=== PATIENT | female | born 1965 | race Two or more races ===

== ENCOUNTER 2019-08-11 16:30 | Emergency (ER) | payer OTHER ==
[~2019-08-11] VITALS: Ht 157.5 cm; Wt 75.7 kg
[2019-08-11 17:44] LABS: Basophils # (auto) 0.1 uL; Basophils % (auto) 0.5 % (0.0-2.0); Eosinophils # (auto) 0.1 uL; Eosinophils % (auto) 0.3 % (0.0-7.0); Hematocrit 37.8 % (36.0-46.0); Hemoglobin 13.2 g/dL (12.2-16.2); Lymphocytes # (auto) 1.9 uL; Lymphocytes % (auto) 10.9 % (10.0-50.0); Mean Corpuscular Hemoglobin 27.7 pg (28.0-32.0); Mean Corpuscular Hgb Conc. 34.9 g/dL (32.0-36.0); Mean Corpuscular Volume 79.4 fL (80.0-100.0); Monocytes # (auto) 1.2 uL; Monocytes % (auto) 6.8 % (0.0-12.0); Neutrophils # (auto) 13.8 uL; Neutrophils % (auto) 81.5 % (37.0-80.0); Platelet Count (auto) 291 10^3/uL (140-450); Red Blood Cells 4.77 10^6/uL (4.0-5.20); Red Cell Distribution Width 12.5 % (11.8-14.3); White Blood Cell 16.9 10^3/uL (4.4-10.8)
[2019-08-11 18:01] LABS: Albumin 2.2 g/dL (3.4-5.0); BUN/Creatinine Ratio 12.2; Calcium 8.7 mg/dL (8.5-10.1)
[2019-08-11 18:04] LABS: Bilirubin, Total 0.4 mg/dL (0.2-1.0); Total Protein 6.5 g/dL (6.4-8.2)
[2019-08-11 18:10] LABS: Potassium 2.9 mmol/L (3.5-5.1)
[2019-08-11] MEDS ORDERED: POTASSIUM CHL 20 Meq TABLET PO ONE (19:15)
[2019-08-11] MEDS ORDERED: SODIUM CHLORIDE 0.9% 1,000 ML IV ONE (19:15)
[2019-08-11] MEDS ORDERED: cefTRIAXone 1GM/50ML D5W 50 ML IV ONE (19:15)
[2019-08-11] MEDS ORDERED: CLINDAMYCIN 600MG IV 50 ML IV ONE (20:15)
[2019-08-11] MEDS: POTASSIUM CHL 20MEQ/100ML 100 ML IV SCH (22:50)
[2019-08-11] MEDS ORDERED: InsuLIN REG 1unit/0.01ml Soln (100units/ml) IV ONE (23:15)
[2019-08-12 00:29] LABS: Urine Bacteria FEW /hpf (None Seen); Urine Blood 1+ /uL (Negative); Urine Specific Gravity 1.033 (1.001-1.035); Urine WBC 46 /hpf (0 - 5)
[2019-08-12 00:30] VITALS: BP 142/76
[2019-08-12] MEDS: POTASSIUM CHL 20MEQ/100ML 100 ML IV SCH (00:39)
== END 2019-08-12 00:45 | disposition short-term general hospital (02) ==
LOC: ER 16:30
DX: L02.416 Cutaneous abscess of left lower limb (principal)
CPT/HCPCS: 36415; 80053; 81001; 82962; 83605; 85025; 87040; 96365; 96366; 96368; 96375; 99285; J0696; J1815; J3480; J3490

== ENCOUNTER 2019-12-13 16:04 | Inpatient (IN) | payer OTHER ==
[~2019-12-13] VITALS: Ht 162.6 cm; Wt 66.7 kg
[2019-12-13 17:24] LABS: Basophils # (auto) 0.1 10 ^3/uL (0-0.2); Basophils % (auto) 0.8 % (0.0-2.0); Eosinophils # (auto) 0.1 10 ^3/uL (0-0.8); Eosinophils % (auto) 1.3 % (0.0-7.0); Hemoglobin 14.8 g/dL (12.2-16.2); Lymphocytes # (auto) 2.1 10 ^3/uL (0.4-5.4); Lymphocytes % (auto) 26.6 % (10.0-50.0); Mean Corpuscular Hemoglobin 27.9 pg (28.0-32.0); Mean Corpuscular Hgb Conc. 34.5 g/dL (32.0-36.0); Mean Corpuscular Volume 80.9 fL (80.0-100.0); Monocytes % (auto) 12.4 % (0.0-12.0); Neutrophils # (auto) 4.7 10 ^3/uL (1.6-8.6); Neutrophils % (auto) 58.9 % (37.0-80.0); Nucleated Red Blood Cells % 0.4 %; Platelet Count (auto) 315 10^3/uL (140-450); Red Blood Cells 5.32 10^6/uL (4.0-5.20); Red Cell Distribution Width 13.5 % (11.8-14.3)
[2019-12-13 17:44] LABS: Albumin 2.9 g/dL (3.4-5.0); BUN/Creatinine Ratio 24.2; Calcium 9.5 mg/dL (8.5-10.1); Potassium 3.7 mmol/L (3.5-5.1)
[2019-12-13 17:47] LABS: Bilirubin, Total 0.4 mg/dL (0.2-1.0); Total Protein 7.5 g/dL (6.4-8.2)
[2019-12-13] MEDS ORDERED: LORazepam 2MG/ML-1ML VIAL IV PRN (18:45)
[2019-12-13] MEDS ORDERED: DEXTROSE (50%) 50ML SYRG IV PRN (19:00)
[2019-12-13] MEDS ORDERED: LORazepam 2MG/ML-1ML VIAL IV ONE ×2 (19:00→22:00)
[2019-12-13] MEDS ORDERED: NITROGLYCERIN 0.4 MG SL TAB SL PRN (19:00)
[2019-12-13] MEDS ORDERED: MORPHINE SULF INJ 2 MG/ML SYRINGE 1ML IV PRN (19:00)
[2019-12-13] MEDS ORDERED: LABETALOL HCL 5 MG/ML 4ML SYRINGE IV PRN (19:00)
[2019-12-13] MEDS ORDERED: LORazepam 2MG/ML-1ML VIAL ONE (19:02)
[2019-12-13] MEDS: SODIUM CHLORIDE 0.9% 1,000 ML IV SCH (19:08)
[2019-12-13] MEDS ORDERED: TEMAZEPAM 15 MG CAP PO ONE (21:30)
[2019-12-13] MEDS: InsuLIN REG 1unit/0.01ml Soln (100units/ml) SC SCH (22:00)
[2019-12-13] MEDS: ACCU-CHEK COMFORT CURVE STRIP VI SCH (23:21)
[2019-12-14 02:48] LABS: Cholesterol 173 mg/dL (< 200); HDL Cholesterol 26 mg/dL (40-59); LDL Cholesterol 118 mg/dL (< 100); Triglycerides 138 mg/dL (< 150)
[2019-12-14] MEDS: SODIUM CHLORIDE 0.9% 1,000 ML IV SCH ×2 (05:00→17:18)
[2019-12-14] MEDS: InsuLIN REG 1unit/0.01ml Soln (100units/ml) SC SCH ×3 (06:43→17:00)
[2019-12-14] MEDS: ACCU-CHEK COMFORT CURVE STRIP VI SCH ×3 (06:43→17:17)
[2019-12-14] MEDS ORDERED: PANTOPRAZOLE 40 MG/10 ML VIAL INJ IV SCH (10:00)
[2019-12-14] MEDS ORDERED: ASPirin 81 mg TAB PO SCH (10:00)
[2019-12-14] MEDS ORDERED: ATORVASTATIN 20 MG TAB PO SCH (10:00)
[2019-12-14] MEDS ORDERED: LORazepam 2MG/ML-1ML VIAL IV PRN ×2 (13:00→16:15)
[2019-12-14 16:23] VITALS: BP 127/82
[2019-12-14 16:24] VITALS: BP 127/82
== END 2019-12-14 17:51 | disposition left against medical advice (07) | DRG 65 ==
LOC: ER 16:04 → TELE 16:05 → TELE-EAST 12-14 14:30
PROVIDERS: ADMIT Nurse Practitioner Acute Care; ATTEND Family Medicine
DX: I63.89 Other cerebral infarction (principal); E44.0 Moderate protein-calorie malnutrition; G81.94 Hemiplegia, unspecified affecting left nondominant side; E11.22 Type 2 diabetes mellitus with diabetic chronic kidney disease; E78.5 Hyperlipidemia, unspecified; F17.200 Nicotine dependence, unspecified, uncomplicated; G93.89 Other specified disorders of brain; I12.9 Hypertensive chronic kidney disease with stage 1 through stage 4 chronic kidney disease, or unspecified chronic kidney disease; M79.7 Fibromyalgia; N18.3 Chronic kidney disease, stage 3 (moderate); Z53.29 Procedure and treatment not carried out because of patient's decision for other reasons; R47.81 Slurred speech; R29.810 Facial weakness; Z79.02 Long term (current) use of antithrombotics/antiplatelets; Z79.84 Long term (current) use of oral hypoglycemic drugs; Z79.899 Other long term (current) drug therapy; Z80.9 Family history of malignant neoplasm, unspecified; Z82.49 Family history of ischemic heart disease and other diseases of the circulatory system; Z83.3 Family history of diabetes mellitus; Z86.73 Personal history of transient ischemic attack (TIA), and cerebral infarction without residual deficits; Z68.25 Body mass index [BMI] 25.0-25.9, adult
CPT/HCPCS: 36415; 70450; 70551; 71045; 80053; 80061; 82962; 83036; 83735; 84484; 85025; 93005; 93886; C9113; G0378; J1815

== ENCOUNTER 2024-03-19 13:17 | Inpatient (IN) | payer MEDICARE, MEDICAID ==
[~2024-03-19] VITALS: Ht 157.5 cm; Wt 120.6 kg
[2024-03-19 14:00] VITALS: PULSE 100; RESP 16; O2SAT 91
[2024-03-19 15:30] LABS: Basophils # (auto) 0 10 ^3/uL (0-0.2); Basophils % (auto) 0.5 % (0.0-2.0); Eosinophils # (auto) 0.3 10 ^3/uL (0-0.8); Eosinophils % (auto) 4.3 % (0.0-7.0); Hematocrit 29.8 % (36.0-46.0); Hemoglobin 9.8 g/dL (12.2-16.2); Lymphocytes # (auto) 1.3 10 ^3/uL (0.4-5.4); Lymphocytes % (auto) 20.8 % (10.0-50.0); Mean Corpuscular Hemoglobin 27.1 pg (28.0-32.0); Mean Corpuscular Hgb Conc. 32.7 g/dL (32.0-36.0); Mean Corpuscular Volume 82.7 fL (80.0-100.0); Monocytes # (auto) 0.5 10 ^3/uL (0-1.3); Monocytes % (auto) 8.5 % (0.0-12.0); Neutrophils # (auto) 4.1 10 ^3/uL (1.6-8.6); Neutrophils % (auto) 65.9 % (37.0-80.0); Nucleated Red Blood Cells % 0.1 %; Platelet Count (auto) 195 10^3/uL (140-450); Red Cell Distribution Width 15.2 % (11.8-14.3); White Blood Cell 6.2 10^3/uL (4.4-10.8)
[2024-03-19 15:43] LABS: Alanine Aminotransferase 16 U/L (7-40); Albumin 3.7 g/dL (3.2-4.8); Alkaline Phosphatase 88 U/L (46-116); Anion Gap 4 (5-15); Aspartate Aminotransferase 11 U/L (13-40); BUN/Creatinine Ratio 16.1 (10.0-20.0); Bilirubin, Total 0.4 mg/dL (0.2-1.0); Blood Urea Nitrogen 14 mg/dL (9-23); Calcium 9.2 mg/dL (8.7-10.4); Carbon Dioxide 38 mmol/L (20-30); Chloride 102 mmol/L (98-107); Glucose 203 mg/dL (74-106); Potassium 2.9 mmol/L (3.5-5.1); Sodium 144 mmol/L (136-145); Total Protein 5.8 g/dL (5.7-8.2)
[2024-03-19] MEDS: POTASSIUM CHL 20 Meq TABLET PO ONE ×2 (16:20→22:53)
[2024-03-19] MEDS: hydrALAZINE HCL 20 MG/ML VL IV ONE ×2 (16:23→19:31)
[2024-03-19] MEDS: MORPHINE SULFATE 4 MG/ML SYR/VIAL IV ONE ×2 (16:25→19:32)
[2024-03-19] MEDS: ONDANSETRON HCL 4 MG/2 ML VIAL IV ONE (16:27)
[2024-03-19] MEDS: CLINDAMYCIN 600MG IV 50 ML IV ONE (16:27)
[2024-03-19] MEDS ORDERED: CLIN1CAP70 PO (16:58)
[2024-03-19] MEDS ORDERED: LIDOCAINE HCL 5 % TOP OINT 35 GM TOP PRN (19:00)
[2024-03-19] MEDS: LIDOCAINE HCL 2% TOP JELLY 5ML TOP PRN (19:32)
[2024-03-19 20:10] VITALS: PULSE 74; RESP 18; O2SAT 98
[2024-03-19] MEDS ORDERED: ONDANSETRON HCL 4 MG/2 ML VIAL IV PRN (21:30)
[2024-03-19] MEDS ORDERED: ACETAMINOPHEN 325 MG TAB PO PRN (21:30)
[2024-03-19] MEDS ORDERED: DEXTROSE (50%) 50ML SYRG IV PRN (21:30)
[2024-03-19] MEDS: SODIUM CHLOR 0.9% PF (SALINE LOCK) 10ML VIAL/SYR IV SCH (22:00)
[2024-03-19] MEDS: InsuLIN REG 1unit/0.01ml Soln (100units/ml) SC SCH (22:00)
[2024-03-19] MEDS: ACCU-CHEK COMFORT CURVE STRIP VI SCH (22:00)
[2024-03-19] MEDS ORDERED: MORPHINE SULFATE INJ 2 MG/ml SYRG IV PRN (22:30)
[2024-03-19] MEDS ORDERED: NITROGLYCERIN 0.4 MG SL TAB SL PRN (22:30)
[2024-03-19] MEDS: ATORVASTATIN 20 MG TAB PO SCH (22:36)
[2024-03-19] MEDS: CLINDAMYCIN 300MG IV 50 ML IV SCH (22:36)
[2024-03-20 05:46] LABS: Basophils # (auto) 0 10 ^3/uL (0-0.2); Eosinophils # (auto) 0.3 10 ^3/uL (0-0.8); Monocytes # (auto) 0.6 10 ^3/uL (0-1.3)
[2024-03-20 05:48] LABS: Basophils % (auto) 0.6 % (0.0-2.0); Eosinophils % (auto) 3.9 % (0.0-7.0); Hematocrit 31.3 % (36.0-46.0); Lymphocytes # (auto) 1.8 10 ^3/uL (0.4-5.4); Mean Corpuscular Hemoglobin 26.7 pg (28.0-32.0); Mean Corpuscular Volume 83.6 fL (80.0-100.0); Monocytes % (auto) 8.1 % (0.0-12.0); Neutrophils # (auto) 4.8 10 ^3/uL (1.6-8.6); Neutrophils % (auto) 63.4 % (37.0-80.0); Nucleated Red Blood Cells % 0.1 %; Platelet Count (auto) 193 10^3/uL (140-450); Red Blood Cells 3.74 10^6/uL (4.0-5.20); Red Cell Distribution Width 15.2 % (11.8-14.3); White Blood Cell 7.6 10^3/uL (4.4-10.8)
[2024-03-20 06:04] LABS: Alanine Aminotransferase 15 U/L (7-40); Albumin 3.6 g/dL (3.2-4.8); Alkaline Phosphatase 81 U/L (46-116); Anion Gap 9 (5-15); Aspartate Aminotransferase 14 U/L (13-40); BUN/Creatinine Ratio 14.9 (10.0-20.0); Bilirubin, Total 0.5 mg/dL (0.2-1.0); Blood Urea Nitrogen 13 mg/dL (9-23); Calcium 8.8 mg/dL (8.7-10.4); Carbon Dioxide 29 mmol/L (20-30); Chloride 103 mmol/L (98-107); Glucose 136 mg/dL (74-106); Potassium 3.5 mmol/L (3.5-5.1); Sodium 141 mmol/L (136-145); Total Protein 5.8 g/dL (5.7-8.2)
[2024-03-20] MEDS: InsuLIN REG 1unit/0.01ml Soln (100units/ml) SC SCH (07:30)
[2024-03-20] MEDS: HYDROcodone-ACET 5/325MG TAB PO PRN (09:09)
[2024-03-20] MEDS: LISINOPRIL 20 MG TAB PO SCH (10:18)
[2024-03-20] MEDS: ASPirin 81 mg TAB PO SCH (10:18)
[2024-03-20] MEDS ORDERED: LIDOCAINE HCL 5 % TOP OINT 35 GM TOP PRN (14:00)
[2024-03-20 18:10] VITALS: BP 135/64; PULSE 74; RESP 16; TEMP 97.1; O2SAT 98
[2024-03-20 18:11] VITALS: BP 135/64; PULSE 92; RESP 16; TEMP 97.1; O2SAT 90
[2024-03-20 18:24] VITALS: PULSE 77; RESP 18; O2SAT 94
[2024-03-20 20:00] VITALS: PULSE 80; RESP 18; O2SAT 96
[2024-03-20 21:00] VITALS: BP 122/56; PULSE 79; RESP 18; TEMP 98; O2SAT 98
[2024-03-21] VITALS (9 sets, daily range): BP systolic 123–187; BP diastolic 52–90; PULSE 73–91; RESP 16–22; TEMP 98–98.6; O2SAT 93–100
[2024-03-21] MEDS ORDERED: CLOP75TA70 PO (09:54)
[2024-03-21] MEDS ORDERED: LISI40TA16 PO (09:54)
[2024-03-21] MEDS ORDERED: ATOR40TA52 PO (09:54)
[2024-03-21] MEDS ORDERED: GLIP10TA9 PO (09:54)
[2024-03-21] MEDS ORDERED: ASPI325T6 PO (09:54)
[2024-03-21] MEDS ORDERED: SITA50TA PO (09:54)
[2024-03-21] MEDS: hydrALAZINE HCL 20 MG/ML VL IV PRN (13:05)
[2024-03-21] MEDS: PIPERACILLIN-TAZOB 3.375GM 100 ML IV SCH (14:14)
[2024-03-21] MEDS: DOCUSATE SOD 100 MG CAP PO PRN (14:31)
[2024-03-21] MEDS: LACTULOSE 20Gm/30ML SOLN PO ONE (16:35)
[2024-03-21] MEDS: MORPHINE SULFATE INJ 2 MG/ml SYRG IV PRN (22:11)
[2024-03-22] VITALS (8 sets, daily range): BP systolic 130–171; BP diastolic 64–90; PULSE 69–88; RESP 15–24; TEMP 97.5–98.7; O2SAT 91–98
[2024-03-22 11:33] LABS: Basophils # (auto) 0 10 ^3/uL (0-0.2); Basophils % (auto) 0.5 % (0.0-2.0); Eosinophils # (auto) 0.3 10 ^3/uL (0-0.8); Eosinophils % (auto) 3.6 % (0.0-7.0); Hematocrit 29.5 % (36.0-46.0); Hemoglobin 9.6 g/dL (12.2-16.2); Lymphocytes # (auto) 1.2 10 ^3/uL (0.4-5.4); Lymphocytes % (auto) 16.6 % (10.0-50.0); Mean Corpuscular Hemoglobin 27.1 pg (28.0-32.0); Mean Corpuscular Hgb Conc. 32.4 g/dL (32.0-36.0); Mean Corpuscular Volume 83.5 fL (80.0-100.0); Monocytes # (auto) 0.4 10 ^3/uL (0-1.3); Monocytes % (auto) 6.2 % (0.0-12.0); Neutrophils # (auto) 5.2 10 ^3/uL (1.6-8.6); Neutrophils % (auto) 73.1 % (37.0-80.0); Nucleated Red Blood Cells % 0.1 %; Platelet Count (auto) 169 10^3/uL (140-450); Red Blood Cells 3.53 10^6/uL (4.0-5.20); Red Cell Distribution Width 15.1 % (11.8-14.3); White Blood Cell 7.1 10^3/uL (4.4-10.8)
[2024-03-22 11:55] LABS: Anion Gap 5 (5-15); Carbon Dioxide 27 mmol/L (20-30); Chloride 106 mmol/L (98-107); Sodium 138 mmol/L (136-145)
[2024-03-22 11:56] LABS: Calcium 8.4 mg/dL (8.7-10.4)
[2024-03-22 12:01] LABS: BUN/Creatinine Ratio 13.9 (10.0-20.0); Blood Urea Nitrogen 11 mg/dL (9-23); Glucose 250 mg/dL (74-106); Magnesium 1.9 mg/dL (1.6-2.6); Triglycerides 85 mg/dL (< 150)
[2024-03-22 12:02] LABS: LDL Cholesterol 46 mg/dL (< 100)
[2024-03-22 12:03] LABS: Cholesterol 100 mg/dL (< 200); HDL Cholesterol 35 mg/dL (40-59)
[2024-03-22] MEDS: NIFEdipine ER 30 MG TAB PO ONE (13:23)
[2024-03-22 14:15] LABS: Amphetamine Screen, Urine Neg (NEGATIVE); Barbiturate Scree,Urine Neg (NEGATIVE); Benzodiazephine Screen, Urine Neg (NEGATIVE); Cocaine Screen, Urine Neg (NEGATIVE)
[2024-03-22 14:16] LABS: Cannabinoid Screen, Urine Neg (NEGATIVE); Opiate Scree,Urine Pos (NEGATIVE); Phencyclidine Screen, Urine Neg (NEGATIVE)
[2024-03-22] MEDS: ATORVASTATIN 20 MG TAB PO SCH (21:50)
[2024-03-23] VITALS (14 sets, daily range): BP systolic 98–152; BP diastolic 50–78; PULSE 71–84; RESP 14–20; TEMP 97.5–98.3; O2SAT 94–100
[2024-03-23 05:39] LABS: Basophils # (auto) 0 10 ^3/uL (0-0.2); Basophils % (auto) 0.7 % (0.0-2.0); Eosinophils # (auto) 0.5 10 ^3/uL (0-0.8); Eosinophils % (auto) 6.6 % (0.0-7.0); Hematocrit 29.2 % (36.0-46.0); Hemoglobin 9.5 g/dL (12.2-16.2); Lymphocytes # (auto) 1.7 10 ^3/uL (0.4-5.4); Lymphocytes % (auto) 23.7 % (10.0-50.0); Mean Corpuscular Hemoglobin 27.1 pg (28.0-32.0); Mean Corpuscular Hgb Conc. 32.5 g/dL (32.0-36.0); Mean Corpuscular Volume 83.4 fL (80.0-100.0); Monocytes # (auto) 0.5 10 ^3/uL (0-1.3); Monocytes % (auto) 7.4 % (0.0-12.0); Neutrophils # (auto) 4.5 10 ^3/uL (1.6-8.6); Neutrophils % (auto) 61.6 % (37.0-80.0); Nucleated Red Blood Cells % 0.1 %; Platelet Count (auto) 172 10^3/uL (140-450); Red Cell Distribution Width 15.5 % (11.8-14.3); White Blood Cell 7.2 10^3/uL (4.4-10.8)
[2024-03-23 05:55] LABS: INR 1.21 (0.9-1.15); Partial Thromboplastin Time 23.6 SEC (24.5-34.5); Prothrombin Time 12.6 sec (9.3-11.8)
[2024-03-23 06:07] LABS: Anion Gap 4 (5-15); Carbon Dioxide 24 mmol/L (20-30); Chloride 109 mmol/L (98-107); Potassium 4.1 mmol/L (3.5-5.1); Sodium 137 mmol/L (136-145)
[2024-03-23 06:13] LABS: Blood Urea Nitrogen 12 mg/dL (9-23); Glucose 143 mg/dL (74-106)
[2024-03-23] MEDS: NIFEdipine ER 30 MG TAB PO SCH (09:07)
[2024-03-23] MEDS ORDERED: LIDOCAINE 2%HCL (LOCAL ANESTH.) INJ 20ML MDV ONE ×2 (09:32→10:07)
[2024-03-23] MEDS ORDERED: ANGIOMAX 250 MG VIAL IV ONE (10:05)
[2024-03-23] MEDS ORDERED: MIDAZOLAM HCL 2MG/2ML 2ml VIAL (1mg/ml) ONE (10:06)
[2024-03-23] MEDS ORDERED: fentaNYL CITRATE 100 MCG/2 ML VL ONE (10:06)
[2024-03-23] MEDS ORDERED: SODIUM CHL 0.9% 0 ML ONE (10:07)
[2024-03-23] MEDS ORDERED: IODIXANOL 320MG/ML 100ML BTL IV ONE ×2 (10:12→10:16)
[2024-03-23] MEDS ORDERED: IOHEXOL 350 MG/ML 100ML IJ ONE (10:42)
[2024-03-23] MEDS ORDERED: GELATIN 1 SPONGE SIZE 50 TOP ONE (10:42)
[2024-03-23] MEDS: LORazepam 2MG/ML-1ML VIAL IV PRN (16:27)
[2024-03-24 01:00] VITALS: BP 155/59; PULSE 77; RESP 14; TEMP 98.2; O2SAT 97
[2024-03-24 05:00] VITALS: BP 136/51; PULSE 75; RESP 16; TEMP 97.7; O2SAT 97
[2024-03-24] MEDS ORDERED: HYDR-4902 PO (07:56)
[2024-03-24] MEDS ORDERED: CLIN1CAP70 PO (07:56)
[2024-03-24 08:00] VITALS: PULSE 81; PULSE 85; RESP 24; O2SAT 91
[2024-03-24 08:01] VITALS: BP 135/61; PULSE 74; RESP 19; TEMP 97.8; O2SAT 91
[2024-03-24] MEDS ORDERED: NIFE1TAB30 PO (08:21)
[2024-03-24 11:33] VITALS: BP 159/72; PULSE 81; RESP 17; TEMP 98.2; O2SAT 96
[2024-03-24 14:44] VITALS: BP 135/61; PULSE 74; RESP 19; TEMP 97.8; O2SAT 91
== END 2024-03-24 16:51 | disposition home health service (06) | DRG 300 ==
LOC: ER 13:17 → EDBD 13:17 → TELE 22:28 → TELE-CENTR 22:28
PROVIDERS: ADMIT Nurse Practitioner Family; ATTEND Family Medicine
PROC: 05HD33Z Insertion of Infusion Device into Right Cephalic Vein, Percutaneous Approach (ICD-10-PCS; 2024-03-22)
PROC: B54MZZA Ultrasonography of Right Upper Extremity Veins, Guidance (ICD-10-PCS; 2024-03-22)
PROC: B41GYZZ Fluoroscopy of Left Lower Extremity Arteries using Other Contrast (ICD-10-PCS; principal; 2024-03-23)
PROC: B41FYZZ Fluoroscopy of Right Lower Extremity Arteries using Other Contrast (ICD-10-PCS; 2024-03-23)
PROC: B44FZZZ Ultrasonography of Right Lower Extremity Arteries (ICD-10-PCS; 2024-03-23)
DX: I70.202 Unspecified atherosclerosis of native arteries of extremities, left leg (principal); F11.20 Opioid dependence, uncomplicated; L03.116 Cellulitis of left lower limb; I69.354 Hemiplegia and hemiparesis following cerebral infarction affecting left non-dominant side; I16.0 Hypertensive urgency; E87.6 Hypokalemia; I10 Essential (primary) hypertension; E78.00 Pure hypercholesterolemia, unspecified; E11.51 Type 2 diabetes mellitus with diabetic peripheral angiopathy without gangrene; K59.00 Constipation, unspecified; M79.7 Fibromyalgia; F15.10 Other stimulant abuse, uncomplicated; E11.65 Type 2 diabetes mellitus with hyperglycemia; E11.21 Type 2 diabetes mellitus with diabetic nephropathy; E11.40 Type 2 diabetes mellitus with diabetic neuropathy, unspecified; E66.9 Obesity, unspecified; Z83.3 Family history of diabetes mellitus; Z90.49 Acquired absence of other specified parts of digestive tract; Z90.710 Acquired absence of both cervix and uterus; Z68.38 Body mass index [BMI] 38.0-38.9, adult
CPT/HCPCS: 36415; 80048; 80053; 80061; 80307; 82962; 83036; 83605; 83735; 84132; 84443; 85025; 85610; 85730; 87040; 93306; 93925; 93970; 96365; 96375; 97163; 99152; G0378; J1815; J2250; J2405; J2543; J3490; Q9967

== ENCOUNTER 2024-03-27 10:55 | Inpatient (IN) | payer MEDICARE, MEDICAID ==
[~2024-03-27] VITALS: Ht 157.5 cm; Wt 103.2 kg
[~2024-03-27 10:55] MED LIST: ASPI325T6 PO; ATOR40TA52 PO; CLIN1CAP70 PO; CLOP75TA70 PO; GLIP10TA9 PO; HYDR-4902 PO; LISI40TA16 PO; NIFE1TAB30 PO; SITA50TA PO
[2024-03-27 12:25] LABS: Eosinophils # (auto) 0.3 10 ^3/uL (0-0.8); Eosinophils % (auto) 3.8 % (0.0-7.0); Mean Corpuscular Hgb Conc. 33.5 g/dL (32.0-36.0); Monocytes # (auto) 0.6 10 ^3/uL (0-1.3); Neutrophils # (auto) 5.5 10 ^3/uL (1.6-8.6)
[2024-03-27 12:27] LABS: Basophils # (auto) 0.1 10 ^3/uL (0-0.2); Basophils % (auto) 0.7 % (0.0-2.0); Hematocrit 33.3 % (36.0-46.0); Hemoglobin 11.2 g/dL (12.2-16.2); Lymphocytes # (auto) 1.5 10 ^3/uL (0.4-5.4); Mean Corpuscular Hemoglobin 26.8 pg (28.0-32.0); Mean Corpuscular Volume 80.1 fL (80.0-100.0); Neutrophils % (auto) 69.5 % (37.0-80.0); Nucleated Red Blood Cells % 0.1 %; Platelet Count (auto) 238 10^3/uL (140-450); Red Blood Cells 4.16 10^6/uL (4.0-5.20); Red Cell Distribution Width 15.4 % (11.8-14.3); White Blood Cell 7.9 10^3/uL (4.4-10.8)
[2024-03-27 12:57] LABS: Alanine Aminotransferase 20 U/L (7-40); Albumin 4.3 g/dL (3.2-4.8); Alkaline Phosphatase 90 U/L (46-116); Anion Gap 2 (5-15); Aspartate Aminotransferase 19 U/L (13-40); BUN/Creatinine Ratio 11.9 (10.0-20.0); Bilirubin, Total 0.4 mg/dL (0.2-1.0); Blood Urea Nitrogen 8 mg/dL (9-23); Calcium 10.4 mg/dL (8.7-10.4); Carbon Dioxide 29 mmol/L (20-30); Chloride 105 mmol/L (98-107); Glucose 97 mg/dL (74-106); Lipase 29 U/L (12-53); Potassium 3.9 mmol/L (3.5-5.1); Sodium 136 mmol/L (136-145); Total Protein 6.6 g/dL (5.7-8.2)
[2024-03-27 17:10] LABS: Urine Bacteria None Seen /hpf (None Seen)
[2024-03-27 17:15] VITALS: PULSE 84; RESP 13; O2SAT 99
[2024-03-27 17:26] LABS: Urine Blood TRACE /uL (Negative); Urine Clarity Clear (Clear); Urine Color Colorless (Yellow); Urine Protein, UAD 1+ (Negative); Urine Specific Gravity 1.005 (1.001-1.035); Urine Urobilinogen Normal (Negative); Urine WBC <1 /hpf (0 - 5)
[2024-03-27] MEDS: ONDANSETRON HCL 4 MG/2 ML VIAL IV ONE (17:38)
[2024-03-27] MEDS: PIPERACILLIN-TAZO 4.5GM 100 ML IV ONE (17:38)
[2024-03-27] MEDS: MORPHINE SULFATE 4 MG/ML SYR/VIAL IV ONE ×2 (17:39→21:57)
[2024-03-27 19:45] VITALS: PULSE 84; RESP 13; O2SAT 99
[2024-03-27] MEDS ORDERED: DEXTROSE (50%) 50ML SYRG IV PRN (23:30)
[2024-03-27] MEDS ORDERED: NITROGLYCERIN 0.4 MG SL TAB SL PRN (23:30)
[2024-03-27] MEDS ORDERED: MORPHINE SULFATE INJ 2 MG/ml SYRG IV PRN (23:30)
[2024-03-27] MEDS ORDERED: DOCUSATE SOD 100 MG CAP PO PRN (23:30)
[2024-03-27] MEDS ORDERED: ACETAMINOPHEN 325 MG TAB PO PRN (23:30)
[2024-03-28] MEDS: MORPHINE SULFATE INJ 2 MG/ml SYRG IV PRN (03:31)
[2024-03-28] MEDS: SODIUM CHLOR 0.9% PF (SALINE LOCK) 10ML VIAL/SYR IV SCH (06:21)
[2024-03-28] MEDS: PIPERACILLIN-TAZOB 3.375GM 100 ML IV SCH (06:21)
[2024-03-28] MEDS: ACCU-CHEK COMFORT CURVE STRIP VI SCH (06:44)
[2024-03-28] MEDS: InsuLIN REG 1unit/0.01ml Soln (100units/ml) SC SCH (06:45)
[2024-03-28 06:54] LABS: Basophils # (auto) 0 10 ^3/uL (0-0.2); Basophils % (auto) 0.6 % (0.0-2.0); Eosinophils # (auto) 0.3 10 ^3/uL (0-0.8); Eosinophils % (auto) 4.2 % (0.0-7.0); Hematocrit 31.8 % (36.0-46.0); Hemoglobin 10.6 g/dL (12.2-16.2); Lymphocytes # (auto) 1.6 10 ^3/uL (0.4-5.4); Lymphocytes % (auto) 22.1 % (10.0-50.0); Mean Corpuscular Hemoglobin 27.3 pg (28.0-32.0); Mean Corpuscular Hgb Conc. 33.5 g/dL (32.0-36.0); Mean Corpuscular Volume 81.7 fL (80.0-100.0); Monocytes # (auto) 0.6 10 ^3/uL (0-1.3); Monocytes % (auto) 8.6 % (0.0-12.0); Neutrophils # (auto) 4.5 10 ^3/uL (1.6-8.6); Neutrophils % (auto) 64.5 % (37.0-80.0); Nucleated Red Blood Cells % 0.2 %; Platelet Count (auto) 227 10^3/uL (140-450); Red Blood Cells 3.89 10^6/uL (4.0-5.20); Red Cell Distribution Width 14.9 % (11.8-14.3)
[2024-03-28 07:09] LABS: Alanine Aminotransferase 20 U/L (7-40); Albumin 3.7 g/dL (3.2-4.8); Alkaline Phosphatase 77 U/L (46-116); Anion Gap 6 (5-15); Aspartate Aminotransferase 21 U/L (13-40); BUN/Creatinine Ratio 14.3 (10.0-20.0); Bilirubin, Total 0.4 mg/dL (0.2-1.0); Blood Urea Nitrogen 12 mg/dL (9-23); Calcium 9.5 mg/dL (8.7-10.4); Carbon Dioxide 27 mmol/L (20-30); Chloride 106 mmol/L (98-107); Glucose 78 mg/dL (74-106); Potassium 4.1 mmol/L (3.5-5.1); Sodium 139 mmol/L (136-145); Total Protein 5.7 g/dL (5.7-8.2)
[2024-03-28 07:53] VITALS: PULSE 69; RESP 16; O2SAT 98
[2024-03-28] MEDS: HYDROcodone-ACET 5/325MG TAB PO PRN (09:31)
[2024-03-28] MEDS: ASPirin 81 mg TAB PO SCH (10:37)
[2024-03-28] MEDS: LACTATED RINGER'S 1,000 ML IV SCH (16:31)
[2024-03-28 18:07] VITALS: BP 137/51; PULSE 71; RESP 18; TEMP 98.5; O2SAT 95
[2024-03-28] MEDS ORDERED: CLIN-203 PO (18:19)
[2024-03-28] MEDS ORDERED: TRAZ-228 PO (18:20)
[2024-03-28] MEDS ORDERED: GLIP10TA9 PO (18:22)
[2024-03-28] MEDS ORDERED: ASPI81CH74 PO (18:22)
[2024-03-28 21:00] VITALS: BP 146/51; PULSE 67; RESP 18; TEMP 97.8; O2SAT 94
[2024-03-28] MEDS: ATORVASTATIN 20 MG TAB PO SCH (22:17)
[2024-03-29 01:00] VITALS: BP 114/57; PULSE 81; RESP 18; TEMP 98.9; O2SAT 90
[2024-03-29 05:00] VITALS: BP 100/82; PULSE 112; RESP 59; TEMP 98.1; O2SAT 90
[2024-03-29 09:00] VITALS: BP 117/75; PULSE 80; RESP 18; TEMP 98.4; O2SAT 95
[2024-03-29] MEDS: hydrALAZINE HCL 20 MG/ML VL IV PRN (09:47)
[2024-03-29 13:42] VITALS: BP 155/57; PULSE 81; RESP 19; TEMP 98.3; O2SAT 94
[2024-03-29] MEDS: ONDANSETRON HCL 4 MG/2 ML VIAL IV PRN (15:06)
[2024-03-29 17:51] VITALS: BP 153/56; PULSE 83; RESP 19; TEMP 98.6; O2SAT 96
[2024-03-29 22:00] VITALS: BP 169/61; PULSE 78; RESP 19; TEMP 98.3; O2SAT 95
[2024-03-30] VITALS (7 sets, daily range): BP systolic 134–174; BP diastolic 61–86; PULSE 73–86; RESP 16–18; TEMP 98–99.3; O2SAT 90–97
[2024-03-30] MEDS: LISINOPRIL 20 MG TAB PO SCH (09:15)
[2024-03-30] MEDS: NIFEdipine ER 30 MG TAB PO SCH (09:16)
[2024-03-30 16:07] LABS: INR 1.27 (0.9-1.15); Prothrombin Time 13.2 sec (9.3-11.8)
[2024-03-30] MEDS ORDERED: LIDOCAINE 1% (LOCAL ANESTH.) PF 5ml SDV ID ONE (18:15)
[2024-03-30] MEDS ORDERED: SODIUM CHLOR 0.9% PF (SALINE LOCK) 10ML VIAL/SYR IV SCH (22:00)
== END 2024-03-30 21:59 | DRG 603 ==
LOC: EDUNIT# 10:55 → ER 10:55 → EDBD 10:55 → OVERFLOW 23:28 → WEST WING 03-28 18:11
PROVIDERS: ADMIT Nurse Practitioner Family; ATTEND Family Medicine
PROC: 02HV33Z Insertion of Infusion Device into Superior Vena Cava, Percutaneous Approach (ICD-10-PCS; principal; 2024-03-30)
PROC: B548ZZA Ultrasonography of Superior Vena Cava, Guidance (ICD-10-PCS; 2024-03-30)
DX: L03.116 Cellulitis of left lower limb (principal); I69.354 Hemiplegia and hemiparesis following cerebral infarction affecting left non-dominant side; M31.9 Necrotizing vasculopathy, unspecified; I16.0 Hypertensive urgency; E11.21 Type 2 diabetes mellitus with diabetic nephropathy; E11.40 Type 2 diabetes mellitus with diabetic neuropathy, unspecified; N20.0 Calculus of kidney; E87.6 Hypokalemia; E11.65 Type 2 diabetes mellitus with hyperglycemia; E78.00 Pure hypercholesterolemia, unspecified; I10 Essential (primary) hypertension; M79.7 Fibromyalgia; E11.51 Type 2 diabetes mellitus with diabetic peripheral angiopathy without gangrene; Z99.3 Dependence on wheelchair; Z79.82 Long term (current) use of aspirin; Z79.899 Other long term (current) drug therapy; Z83.3 Family history of diabetes mellitus
CPT/HCPCS: 36415; 36569; 74176; 76937; 80053; 81001; 82962; 83605; 83690; 85025; 85610; 85730; 87081; G0378; J1815; J2405; J2543

== ENCOUNTER 2025-01-24 17:21 | Inpatient (IN) | payer MEDICARE, MEDICAID ==
[~2025-01-24] VITALS: Ht 154.9 cm; Wt 101.0 kg
[~2025-01-24 17:21] MED LIST changes: +ASPI81CH74 PO; +AUG875T PO; -CLIN1CAP70 PO; +FER325T PO; +PANT40TA2 PO; +SUCR1SUS26 PO; +TRAZ-228 PO
--- NOTE | 2025-01-24 17:48 | ED.PDOC ---
GI ASSESSMENT HPI Comments 59 y.o female who is bedbound, with PMHx of DM, HTN, HLD, and CVA with left sided deficits, presents to the ED via EMS for a chief complaint of rectal bleeding associated with lower abdominal pain that started today. Patient reports daughter assisted her to the bathroom today and found rectal bleeding associated with watery stool. Patient was recently discharged from this hospital today s/p admission of anemia with HGB of 6.5. Patient mentions nausea and vomiting yesterday with no active episodes today. She denies any melena, fever, chills, dysuria, back pain, chest pain or SOB. Time Seen by MD: 17:29 Primary Care Provider: NONE Reviewed Notes: Nurses Notes, Dietary Services Director Notes, Medications, Allergies Allergies: Coded Allergies: NO KNOWN ALLERGIES (Unverified , 08/11/19) Home Meds Active Scripts Amoxicillin & Pot Clavulanate (AUGMENTIN TABLET) 875 Mg Tb, 875 MG PO BID for 14 Days, #28 TAB Prov:RENETTA MIRANDA RESIDENT 01/24/25 Sucralfate (CARAFATE SUSP) 1 Gm/10 Ml Ss, 1 GM PO BID@0600,2200 for 30 Days, #2 ML Prov:PRISCA MEDEROS RESIDENT 01/23/25 Pantoprazole Sodium Sesquihydr (Protonix) 40 Mg Tab, 40 MG PO BID for 30 Days, #60 TAB 2 Refills Prov:PRISCA MEDEROS RESIDENT 01/23/25 Ferrous Sulfate (Ferrous Sulfate) 325 Mg Tab, 325 MG PO DAILY for 30 Days, #30 TAB 2 Refills Prov:PRISCA MEDEROS RESIDENT 01/23/25 Nifedipine (Nifedipine Er) 60 Mg Tab, 1 TAB PO DAILY, #90 TAB 1 Refill Prov:OLAF GODOY MD 03/24/24 Hydrocodone-Acetaminophen (Hydrocodone Bitartrate/AC 5-325 mg) 1 Tab Tab, 1 TAB PO QID, #30 TAB Prov:OLAF GODOY MD 03/24/24 Reported Medications Aspirin (Aspirin 81 Low Dose) 81 Mg Chw, 81 MG PO DAILY, TAB.CHEW 03/28/24 Trazodone Hcl (Trazodone Hcl) 100 Mg Tab, 50 MG PO HS, TAB 03/28/24 Atorvastatin Calcium (ATORVASTATIN CALCIUM) 40 Mg Tab, 1 TAB PO DAILY, #30 TAB 5 Refills 03/21/24 Lisinopril (Lisinopril) 40 Mg Tab, 1 TAB PO DAILY, #30 TAB 5 Refills 03/21/24 Glipizide (Glipizide) 10 Mg Tab, 1 TAB PO DAILY, #60 TAB 5 Refills 03/21/24 Clopidogrel Bisulfate (CLOPIDOGREL) 75 Mg Tab, 1 TAB PO DAILY, #90 TAB 1 Refill 03/21/24 Sitagliptin Phosphate (Januvia) 50 Mg Tab, 1 TAB PO DAILY, #30 TAB 5 Refills 03/21/24 Aspirin (Aspirin) 325 Mg Tab, 81 MG PO DAILY for 30 Days, MG 03/21/24 Discontinued Reported Medications Glipizide (Glipizide) 10 Mg Tab, 1 TAB PO BID, #60 TAB 5 Refills 03/28/24 Atorvastatin Calcium (ATORVASTATIN CALCIUM) 40 Mg Tab, 1 TAB PO DAILY, #30 TAB 5 Refills 03/28/24 Clindamycin HCl (Clindamycin Hydrochloride) 300 Mg Cap, 1 CAP PO TID 03/28/24 Discontinued Scripts Clindamycin Hcl (Clindamycin Hcl) 300 Mg Cap, 1 CAP PO TID, #90 CAP Prov:OLAF GODOY MD 03/24/24 Clindamycin Hcl (Clindamycin Hcl) 300 Mg Cap, 1 CAP PO TID, #30 CAP Prov:RAAD PARK MD 03/19/24 Information Source: Patient, Emergency Med Personnel Mode of Arrival: EMS Timing: Hours Duration: Since onset Quality: Sharp Vomitus: Soft Stool: Normal Severity: Moderate Recent Hx of: Other Pain Location: Suprapubic Associated sign and symptoms: Nausea, Vomiting, Hematochezia, Abdominal Pain Past Medical History PAST MEDICAL HISTORY: CVA, DM, High Lipids, HTN, Thyroid Surgical History: Cholecystectomy, , Hysterectomy ROUTE DELIVERY CLERK History: No Pertinent ROUTE DELIVERY CLERK History Family History Family History: Family hx of DM, Family hx of Cancer Social History Smoker: Non-Smoker Alcohol: Denies ETOH Use Drugs: Denies Drug Use Lives In: Home Constitutional: denies: chills, diaphoresis, fatigue, fever, malaise, sweats, weakness, others EENTM: denies: blurred vision, double vision, ear bleeding, ear discharge, ear drainage, ear pain, ear ringing, eye pain, eye redness, hearing loss, mouth pain, mouth swelling, nasal discharge, nose bleeding, nose congestion, nose pain, photophobia, tearing, throat pain, throat swelling, voice changes, others Respiratory: denies: cough, hemoptysis, orthopnea, SOB at rest, shortness of breath, SOB with excertion, stridor, wheezing, others Gastrointestinal: reports: abdominal pain, blood streaked bowels, nausea, rectal bleeding, vomiting; denies: abdomen distended, constipated, diarrhea, dysphagia, difficulty swallowing, hematemesis, melena, poor appetite, poor fluid intake, rectal pain, others Genitourinary: denies: abnormal vagina bleeding, burning, dyspareunia, dysuria, flank pain, frequency, hematuria, incontinence, pain, , vagina discharge, urgency, others Neurological: denies: dizziness, fainting, headache, left sided numbness, left sided weakness, numbness, paresthesia, pre-existing deficit, right sided numbn ess, right sided weakness, seizure, speech problems, tingling, tremors, weakness, others Musculoskeletal: denies: back pain, gout, joint pain, joint swelling, muscle pain, muscle stiffness, neck pain, others Integumetry: denies: bruises, change in color, change in hair/nails, dryness, laceration, lesions, lumps, rash, wounds, others Allergic/Immunocompromised: denies: Difficulty Healing, Frequent Infections, Hives, Itching, others Hematologic/Lymphatic: denies: anemia, blood clots, easy bleeding, easy bruising, swollen glands, others Endocrine: denies: excessive hunger, excessive sweating, excessive thirst, excessive urination, flushing, intolerance to cold, intolerance to heat, unexplained weight gain, unexplained weight loss, others Psychiatric: denies: anxiety, bipolar disorder, depression, hopeless, panic disorder, schizophrenia, sleepless, suicidal, others All Other Systems: Reviewed and Negative Physical Exam General Appearance: Moderate Distress HEENT: Normal ENT Inspection, Pharynx Normal, TMs Normal Neck: Full Range of Motion, Non-Tender, Normal, Normal Inspection Respiratory: Chest Non-Tender, Lungs Clear, No Accessory Muscle Use, No Respiratory Distress, Normal Breath Sounds Cardiovascular: No Edema, No JVD, No Murmur, No Gallop, Normal Peripheral Pulses, Regular Rate/Rhythm Breast Exam: Deferred Gastrointestinal: Diffuse, No Organomegaly, No Pulsatile Mass, Normal Bowel Sounds, Soft, Tenderness Genitalia: Deferred Pelvic: Deferred Rectal: Deferred Extremities: No calf tenderness, Normal capillary refill, Normal inspection, Normal range of motion, Non-tender, No pedal edema Musculoskeletal : Apperance: Normal Neurologic: Alert, executive office manager II-XII nml as Tested, No Motor Deficits, Normal Affect, Normal Mood, No Sensory Deficits Cerebellar Function: Normal Reflexes: Normal Skin: Dry, Normal Color, Warm Lymphatic: No Adenopathy Was a procedure done? Was a procedure done?: No GI differential Dx Differential Diagnosis: Diverticular disease, Gastritis/PUD, GI hemorrhage, Inflammatory BD, Pancreatitis, Anemia, Esophageal Varicies, Stress Ulcer X-Ray, Labs, Meds, VS Vital Signs Date Time Temp Pulse Resp B/P (MAP) Pulse Ox O2 Delivery O2 Flow Rate FiO2 01/24/25 17:53 98.0 88 20 141/89 (106) 95 98.0 Lab Test 01/24/25 17:45 Range/Units White Blood Count 11.5 #H 4.4-10.8 10^3/uL Red Blood Count 4.71 4.0-5.20 10^6/uL Hemoglobin 13.8 12.2-16.2 g/dL Hematocrit 39.9 # 36.0-46.0 % Mean Corpuscular Volume 84.6 80.0-100.0 fL Mean Corpuscular Hemoglobin 29.2 28.0-32.0 pg Mean Corpuscular Hemoglobin Concent 34.5 32.0-36.0 g/dL Red Cell Distribution Width 15.2 H 11.8-14.3 % Platelet Count 210 140-450 10^3/uL Mean Platelet Volume 9.0 6.9-10.8 fL Neutrophils (%) (Auto) 77.5 37.0-80.0 % Lymphocytes (%) (Auto) 13.4 10.0-50.0 % Monocytes (%) (Auto) 5.5 0.0-12.0 % Eosinophils (%) (Auto) 2.8 0.0-7.0 % Basophils (%) (Auto) 0.8 0.0-2.0 % Neutrophils # (Auto) 8.9 H 1.6-8.6 10 ^3/uL Lymphocytes # (Auto) 1.5 0.4-5.4 10 ^3/uL Monocytes # (Auto) 0.6 0-1.3 10 ^3/uL Eosinophils # (Auto) 0.3 0-0.8 10 ^3/uL Basophils # (Auto) 0.1 0-0.2 10 ^3/uL Nucleated Red Blood Cells 0.0 % Prothrombin Time 12.7 H 9.3-11.8 sec Prothrombin Time INR 1.22 H 0.9-1.15 Activated Partial Thromboplast Time 24.8 24.5-34.5 SEC Sodium Level 139 136-145 mmol/L Potassium Level 4.1 3.5-5.1 mmol/L Chloride Level 105 98-107 mmol/L Carbon Dioxide Level 27 20-31 mmol/L Anion Gap 7 5-15 Blood Urea Nitrogen 16 9-23 mg/dL Creatinine 1.00 0.550-1.02 mg/dL Glomerular Filtration Rate Calc 65 >90 mL/min BUN/Creatinine Ratio 16.0 10.0-20.0 Serum Glucose 250 H 74-106 mg/dL Calcium Level 9.6 8.7-10.4 mg/dL The patient's CBC shows an elevated white blood cell count of 11.5 The rest of the CBC is within normal limits The chemistry panel is within normal limits The INR is 1.22 The patient's CAT scan of the abdomen and pelvis is within normal limits The patient was given Protonix 40 mg IV push An IV Hep-Lock was established The patient is being admitted with a diagnosis of lower GI bleed The patient understands and agrees with the management. Images Reviewed?: Images reviewed and evaluated by me Time of 1ST Reevaluation: 17:34 Reevaluation 1ST: Unchanged Patient Education/Counseling: Diagnosis, Treatment, Prognosis Family Education/Counseling: No Family Present SEPSIS Sepsis Screen Physician Orders Urinalysis (01/24/25 17:33) Ct Ab Pel Wo Con-No Oral Or Iv (01/24/25 17:33) Heplock Iv (01/24/25 17:33) Painter Airbrush (01/24/25 17:33) Blood Pressure (01/24/25 17:33) Pulse Oximetry (01/24/25 17:33) Type And Screen (01/24/25 17:33) Vital Signs Date Time Temp Pulse Resp B/P (MAP) Pulse Ox O2 Delivery O2 Flow Rate FiO2 01/24/25 17:53 98.0 88 20 141/89 (106) 95 98.0 Laboratory Tests Test 01/24/25 17:45 White Blood Count 11.5 10^3/uL (4.4-10.8) #H Departure 1 Departure Time of Disposition: 19:39 Impression: Primary Impression: Acute abdominal pain Additional Impression: Lower GI bleed Disposition: ADMITTED INPATIENT Admit to: Med Surg Condition: Fair Critical Care Note Critical Care Time?: No Stability Stability form required: Yes Unstable for transfer: ED Physician Assesment (Clinical assesment) I personally scribed for DAVID JESSICA MD ([email or web address]) on 01/24/25 at 17:48. Electronically submitted by Stephenie Goldberg ([facility]). DAVID JESSICA MD Jan 24, 2025 17:48
[2025-01-24 18:06] LABS: Hematocrit 39.9 % (36.0-46.0); Hemoglobin 13.8 g/dL (12.2-16.2); Mean Corpuscular Hemoglobin 29.2 pg (28.0-32.0); Mean Corpuscular Volume 84.6 fL (80.0-100.0); Nucleated Red Blood Cells % 0.0 %
[2025-01-24 18:17] LABS: Chloride 105 mmol/L (98-107); Potassium 4.1 mmol/L (3.5-5.1); Sodium 139 mmol/L (136-145)
[2025-01-24 18:18] LABS: Anion Gap 7 (5-15); Calcium 9.6 mg/dL (8.7-10.4); Carbon Dioxide 27 mmol/L (20-31)
[2025-01-24 18:20] LABS: INR 1.22 (0.9-1.15); Partial Thromboplastin Time 24.8 SEC (24.5-34.5); Prothrombin Time 12.7 sec (9.3-11.8)
[2025-01-24 18:23] LABS: BUN/Creatinine Ratio 16.0 (10.0-20.0); Blood Urea Nitrogen 16 mg/dL (9-23)
[2025-01-24 19:01] LABS: Glucose 250 mg/dL (74-106)
--- NOTE | 2025-01-24 19:32 | DVH ---
Exam: CT CT AB PEL WO CON-NO ORAL OR IV History: pain Comparison Study: CT CT AB PEL WO CON-NO ORAL OR IV on DOS: 01/17/25, CT CT AB PEL WO CON-NO ORAL OR I V on DOS: 03/27/24 Technique: Multidetector spiral CT of the abdomen was performed from lung bases to pubic symphysis. Imaging was performed without IV contrast. Axial, coronal and sagittal multiplanar reformats were ob tained from the axial data set by the technologist. Radiation Dose : 1. Abdomen/Pelvis: CTDIvol 26 mGy, DLP 1469 mGy*cm. Findings: Evaluation of solid organs is limited due to lack of intravenous contrast use. Lung Bases: No acute or significant lung base finding. Normal heart size. No pleural or pericardial effusion. Left-sided pleural thickening is seen. Liver: The liver is normal in size. No focal lesions. Gallbladder and Biliary Tree: Gallbladder is surgically absent. Spleen: Unremarkable Pancreas: The pancreas is grossly normal in appearance. Adrenal Glands: Unremarkable Kidneys: Kidneys are grossly normal without calculi or hydronephrosis. Bladder: Grossly unremarkable for degree of distention. Trace air is seen in the urinary bladder whic h may be related to recent instrumentation Bowel: The stomach is grossly normal in appearance. Small bowel and colon are normal in caliber and d istribution. The appendix is not visualized; however, no secondary findings of acute appendicitis id entified. Ascites: Absent Lymphadenopathy: No mesenteric, retroperitoneal or periportal lymphadenopathy. Abdominal Wall and Mesentery: Unremarkable. Vasculature: The visualized abdominal aorta is normal in size and caliber. Evaluation of abdominal a nd pelvic vessels is limited due to lack of intravenous contrast. Pelvic Organs: Unremarkable Musculoskeletal: No aggressive focal bony lesions, acute fractures or dislocation. IMPRESSION: 1. No acute abdominal or pelvic findings. Radiation optimization: All CT scans at this facility use at least one of these dose optimization klaa hniques: automated exposure control mA and/or kV adjustment per patient size (includes targeted exam s where dose is matched to clinical indication) or iterative reconstruction.
[2025-01-24] MEDS ORDERED: DEXTROSE (50%) 50ML SYRG IV PRN (20:00)
[2025-01-24] MEDS ORDERED: ONDANSETRON HCL 4 MG/2 ML VIAL IV PRN (20:00)
[2025-01-24 21:56] VITALS: PULSE 87; RESP 22; O2SAT 96
[2025-01-24] MEDS: HYDROcodone-ACET 5/325MG TAB PO PRN (22:36)
[2025-01-24] MEDS: MELATONIN 5 MG TAB PO ONE (22:36)
[2025-01-24] MEDS: ATORVASTATIN 20 MG TAB PO SCH (22:36)
[2025-01-24] MEDS: MELATONIN 5 MG TAB ONE (22:49)
[2025-01-25] VITALS (9 sets, daily range): BP systolic 134–157; BP diastolic 4–81; PULSE 69–78; RESP 8–18; TEMP 97.7–98.6; O2SAT 94–100
[2025-01-25] MEDS: ACCU-CHEK COMFORT CURVE STRIP VI SCH
[2025-01-25] MEDS: InsuLIN REG 1unit/0.01ml Soln (100units/ml) SC SCH
--- NOTE | 2025-01-25 04:37 | DVHHP2 ---
History of Present Illness Reason for Visit: Rectal bleeding History of Present Illness 59-year-old female presents for evaluation of rectal bleeding. Patient reports having two episodes yesterday of rectal bleeding with watery stool. Reports mild lower abdominal pain. No nausea or vomiting No other acute complaints reported. Past Medical History Hypertension, thyroid, dyslipidemia, diabetes mellitus, CVA Past Surgical History , hysterectomy, cholecystectomy Family History Noncontributory Smoke: No ALCOHOL: none Drugs: None Lives: with Family Review of Systems Review of Systems Review of systems are currently negative otherwise addressed in HPI. Allergies: Coded Allergies: NO KNOWN ALLERGIES (Unverified , 08/11/19) Medications Current Medications Medications Dose Ordered Sig/Aldair Route Start Time Stop Time Status Last Admin Dose Admin Atorvastatin Calcium 40 mg HS PO 01/24/25 22:00 01/24/25 22:36 40 MG Ferrous Sulfate 325 mg DAILY PO 01/25/25 10:00 Lisinopril 40 mg DAILY PO 01/25/25 10:00 Pantoprazole Sodium 40 mg DAILY IV 01/25/25 10:00 Diagnostic Test (Pha) 1 strip Q6HR 01/25/25 00:00 Insulin Human Regular Q6HR SC 01/25/25 00:00 Dextrose 50 ml UD PRN IV 01/24/25 20:00 Ondansetron HCl 4 mg Q4HP PRN IV 01/24/25 20:00 Acetaminophen/ Hydrocodone Bitart 1 tab Q6HPRN PRN PO 01/24/25 21:15 01/24/25 22:36 1 TAB Exam Vital Signs Vital Signs Date Time Temp Pulse Resp B/P (MAP) Pulse Ox O2 Delivery O2 Flow Rate FiO2 01/25/25 01:14 80 01/25/25 01:14 17 95 Nasal Cannula* 2 28 01/25/25 01:00 97.7 152/72 (98) 97.7 Exam Gen: 59-year-old female in no apparent distress. Skin: Warm, dry, normal color and texture, no rash. HEENT: Normocephalic atraumatic, mucous membranes moist and pink. Neck: Cervical and supraclavicular nodes normal without enlargement, trachea is midline, thyroid gland is normal without masses. Pulmonary: Clear to auscultation and percussion bilaterally. Cardiac: Regular rate and rhythm. No murmur Abdomen: Soft, nontender, nondistended, bowel sounds present all 4 quadrants, no guarding, no rigidity, no organomegaly. Extremities: No cyanosis, clubbing, no edema Neuro: Cranial nerves II through XII grossly intact, left-sided deficits from previous CVA Labs/Xrays ORDERING PHYSICIAN: DAVID JESSICA MD PROCEDURE(s): ABPL - CT AB PEL WO CON-NO ORAL OR IV REASON: pain ORDER NUMBER(s): [id number], ACCESSION NUMBER(s): [id number] Exam: CT CT AB PEL WO CON-NO ORAL OR IV History: pain Comparison Study: CT CT AB PEL WO CON-NO ORAL OR IV on DOS: 01/17/25, CT CT AB PEL WO CON-NO ORAL OR IV on DOS: 03/27/24 Technique: Multidetector spiral CT of the abdomen was performed from lung bases to pubic symphysis. Imaging was performed without IV contrast. Axial, coronal and sagittal multiplanar reformats were obtained from the axial data set by the technologist. Radiation Dose : 1. Abdomen/Pelvis: CTDIvol 26 mGy, DLP 1469 mGy*cm. Findings: Evaluation of solid organs is limited due to lack of intravenous contrast use. Lung Bases: No acute or significant lung base finding. Normal heart size. No pleural or pericardial effusion. Left-sided pleural thickening is seen. Liver: The liver is normal in size. No focal lesions. Gallbladder and Biliary Tree: Gallbladder is surgically absent. Spleen: Unremarkable Pancreas: The pancreas is grossly normal in appearance. Adrenal Glands: Unremarkable Kidneys: Kidneys are grossly normal without calculi or hydronephrosis. Bladder: Grossly unremarkable for degree of distention. Trace air is seen in the urinary bladder which may be related to recent instrumentation Bowel: The stomach is grossly normal in appearance. Small bowel and colon are normal in caliber and distribution. The appendix is not visualized; however, no secondary findings of acute appendicitis identified. Ascites: Absent Lymphadenopathy: No mesenteric, retroperitoneal or periportal lymphadenopathy. Abdominal Wall and Mesentery: Unremarkable. Vasculature: The visualized abdominal aorta is normal in size and caliber. Evaluation of abdominal and pelvic vessels is limited due to lack of intravenous contrast. Pelvic Organs: Unremarkable Musculoskeletal: No aggressive focal bony lesions, acute fractures or dislocation. IMPRESSION: 1. No acute abdominal or pelvic findings. Radiation optimization: All CT scans at this facility use at least one of these dose optimization techniques: automated exposure control mA and/or kV adjustment per patient size (includes targeted exams where dose is matched to clinical indication) or iterative reconstruction. Labs Test 01/24/25 17:45 Range/Units White Blood Count 11.5 #H 4.4-10.8 10^3/uL Red Blood Count 4.71 4.0-5.20 10^6/uL Hemoglobin 13.8 12.2-16.2 g/dL Hematocrit 39.9 # 36.0-46.0 % Mean Corpuscular Volume 84.6 80.0-100.0 fL Mean Corpuscular Hemoglobin 29.2 28.0-32.0 pg Mean Corpuscular Hemoglobin Concent 34.5 32.0-36.0 g/dL Red Cell Distribution Width 15.2 H 11.8-14.3 % Platelet Count 210 140-450 10^3/uL Mean Platelet Volume 9.0 6.9-10.8 fL Neutrophils (%) (Auto) 77.5 37.0-80.0 % Lymphocytes (%) (Auto) 13.4 10.0-50.0 % Monocytes (%) (Auto) 5.5 0.0-12.0 % Eosinophils (%) (Auto) 2.8 0.0-7.0 % Basophils (%) (Auto) 0.8 0.0-2.0 % Neutrophils # (Auto) 8.9 H 1.6-8.6 10 ^3/uL Lymphocytes # (Auto) 1.5 0.4-5.4 10 ^3/uL Monocytes # (Auto) 0.6 0-1.3 10 ^3/uL Eosinophils # (Auto) 0.3 0-0.8 10 ^3/uL Basophils # (Auto) 0.1 0-0.2 10 ^3/uL Nucleated Red Blood Cells 0.0 % Prothrombin Time 12.7 H 9.3-11.8 sec Prothrombin Time INR 1.22 H 0.9-1.15 Activated Partial Thromboplast Time 24.8 24.5-34.5 SEC Sodium Level 139 136-145 mmol/L Potassium Level 4.1 3.5-5.1 mmol/L Chloride Level 105 98-107 mmol/L Carbon Dioxide Level 27 20-31 mmol/L Anion Gap 7 5-15 Blood Urea Nitrogen 16 9-23 mg/dL Creatinine 1.00 0.550-1.02 mg/dL Glomerular Filtration Rate Calc 65 >90 mL/min BUN/Creatinine Ratio 16.0 10.0-20.0 Serum Glucose 250 H 74-106 mg/dL Calcium Level 9.6 8.7-10.4 mg/dL SEPSIS Sepsis Screen Date sepsis recognized/suspect: Jan 24, 2025 Time Sepsis recognized/suspect: 2158 Recent Procedure: No On Antibiotic Therapy: No Respiratory Rate >20: No Heart Rate >90: No Temp<36 C (96.8 F) or >38.3 C: No SBP <90 or MAP <65 mmHG: No New Acute Mental Status Change: No Is the patient on CPAP, BIPAP,: No Physician Orders Hydrocodone-Acet 5/325mg Tab ([place] 5/32 (01/24/25 21:15) * Dietary Consult (01/25/25 01:46) Mrsa Screen (01/25/25 04:20) Vital Signs Date Time Temp Pulse Resp B/P (MAP) Pulse Ox O2 Delivery O2 Flow Rate FiO2 01/25/25 01:14 80 01/25/25 01:14 77 17 95 Nasal Cannula* 2 28 01/25/25 01:00 97.7 77 17 152/72 (98) 95 97.7 01/25/25 00:54 97.7 77 17 152/72 (98) 95 97.7 01/25/25 00:54 97.7 77 152/72 (98) 95 97.7 01/24/25 21:56 87 22 96 Room Air* 0 01/24/25 21:54 90 24 142/59 (86) 95 01/24/25 21:00 90 Laboratory Tests Test 01/24/25 17:45 White Blood Count 11.5 10^3/uL (4.4-10.8) #H Medications Medications Dose Ordered Sig/Aldair Route Start Time Stop Time Status Last Admin Dose Admin Acetaminophen/ Hydrocodone Bitart 1 tab Q6HPRN PRN PO 01/24/25 21:15 01/24/25 22:36 1 TAB Atorvastatin Calcium 40 mg HS PO 01/24/25 22:00 01/24/25 22:36 40 MG Melatonin 10 mg ONCE@2200 ONCE PO 01/24/25 22:00 01/24/25 22:24 DC 01/24/25 22:36 10 MG Assessment/Plan Assessment/Plan Assessment ? GI bleed Diabetes mellitus Hypertension History of CVA with left-sided deficits Plan Admit the patient to [facility] to the hospitalist GI consult Resume home medications Continue treatment per orders Plan discussed with: Patient My Orders Orders - REESE CARRINGTON Procedure Category Date Status Time Admit ADMIT 01/24/25 Transmitted 19:40 Stool Occult Blood LAB 01/24/25 Logged 19:48 Atorvastatin (Lipitor) PHA 01/24/25 In Process 22:00 Ferrous Sulfate Tablet PHA 01/25/25 In Process 10:00 Lisinopril Tablet PHA 01/25/25 In Process (Zestril Tablet) 10:00 Basic Metabolic Panel LAB 01/25/25 Logged 04:00 * Gi Dvh Interrelated Special Education Teacher CONS 01/24/25 Transmitted 19:48 Pantoprazole PHA 01/25/25 In Process (Protonix) 10:00 Glucose Blood PHA 01/25/25 In Process (Accu-Chek Comfort 00:00 Insulin R (Human) PHA 01/25/25 In Process (Insulin R) 00:00 Dextrose 50% Syringe PHA 01/24/25 In Process 20:00 Ondansetron Hcl PHA 01/24/25 In Process (Zofran) 20:00 Complete Blood Count LAB 01/25/25 Logged 04:00 Condition: Stable DEIDRE 01/24/25 In Process 19:48 Clear Liq Diet DIET 01/25/25 Transmitted Breakfast Bedrest With Bathroom DEIDRE 01/24/25 In Process Privileg 19:48 Hydrocodone-Acet PHA 01/24/25 In Process 5/325mg Tab ([place] 21:15 * Dietary Consult CONS 01/25/25 Transmitted 01:46 Mrsa Screen DARIUS 01/25/25 Logged 04:20 Date of Service: Jan 24, 2025 Billing Provider: REESE CARRINGTON Common Visit Codes: [id number] INP/OBS CARE (HIGH) REESE CARRINGTON Jan 25, 2025 04:37
[2025-01-25 08:27] LABS: Chloride 106 mmol/L (98-107); Potassium 3.9 mmol/L (3.5-5.1); Sodium 140 mmol/L (136-145)
[2025-01-25 08:28] LABS: Anion Gap 7 (5-15); Calcium 9.2 mg/dL (8.7-10.4); Carbon Dioxide 27 mmol/L (20-31)
[2025-01-25 08:33] LABS: BUN/Creatinine Ratio 21.7 (10.0-20.0); Blood Urea Nitrogen 15 mg/dL (9-23)
[2025-01-25 08:37] LABS: Hematocrit 36.1 % (36.0-46.0); Hemoglobin 12.5 g/dL (12.2-16.2); Mean Corpuscular Hemoglobin 29.1 pg (28.0-32.0); Mean Corpuscular Volume 84.3 fL (80.0-100.0); Nucleated Red Blood Cells % 0.0 %
[2025-01-25 08:41] LABS: Glucose 199 mg/dL (74-106)
[2025-01-25] MEDS: FERROUS SULFATE 325mg EC TAB PO SCH (09:39)
[2025-01-25] MEDS: PANTOPRAZOLE 40 MG/10 ML VIAL INJ IV SCH (09:40)
[2025-01-25] MEDS: LISINOPRIL 20 MG TAB PO SCH (09:45)
--- NOTE | 2025-01-25 14:12 | DVHINCON2 ---
GI Consult Consult Note GI consult note Date of Consultation: 01/25/2025 Chief Complaint: Rectal bleeding Referring Physician: Ramy JOSEPH H&P: 59-year-old female presented for evaluation of rectal bleeding. Patient admits to having two episodes of rectal bleeding, but unsure if this is vaginal bleeding, also was having watery stool at this time with lower abdominal pain. No abdominal pain at this time. Last bowel movement was 1 hour ago which is soft stool, no melena or red blood in stool. History of CVA two years, on blood thinners unsure about name, last dose taken yesterday. Last colonoscopy many years ago and unsure about results. Status post EGD Dr. Shea DATE OF OPERATION: 01/19/25 PROCEDURE: Upper Endoscopy with biopsy. PREOPERATIVE INDICATION: The patient is a 59 -year-old female undergoing endoscopy for anemia and heme-positive stools POSTOPERATIVE DIAGNOSES: 1. Moderate gastritis with hyperemia erythema and some superficial erosions 2. 5 mm extension of columnar epithelium into distal esophagus otherwise normal examination up to the 2nd and 3rd part of the duodenum Pathology pending Past Medical History: Hypertension, thyroid, dyslipidemia, diabetes mellitus, CVA Past Surgical History: , hysterectomy, cholecystectomy Social History: NO smoking, drinking ETOH and use of illegal drugs. Family History: Noncontributory Review of Systems: Constitutional: no fever, chill, weight loss HEENT: no eye pain, no hearing loss, no oral lesion, no scleral icterus Heart: no chest pain, no chest pressure Lung: no cough, no dyspnea with exertion Abdomen: see HPI Physical exam: General: NAD, AAOX3 Chest: lung suresh clear to auscultation Heart: RRR, no murmur Abdomen: non-distended, no tenderness to palpation, +BS Labs:Labs Test 01/24/25 17:45 Range/Units White Blood Count 11.5 #H 4.4-10.8 10^3/uL Red Blood Count 4.71 4.0-5.20 10^6/uL Hemoglobin 13.8 12.2-16.2 g/dL Hematocrit 39.9 # 36.0-46.0 % Mean Corpuscular Volume 84.6 80.0-100.0 fL Mean Corpuscular Hemoglobin 29.2 28.0-32.0 pg Mean Corpuscular Hemoglobin Concent 34.5 32.0-36.0 g/dL Red Cell Distribution Width 15.2 H 11.8-14.3 % Platelet Count 210 140-450 10^3/uL Mean Platelet Volume 9.0 6.9-10.8 fL Neutrophils (%) (Auto) 77.5 37.0-80.0 % Lymphocytes (%) (Auto) 13.4 10.0-50.0 % Monocytes (%) (Auto) 5.5 0.0-12.0 % Eosinophils (%) (Auto) 2.8 0.0-7.0 % Basophils (%) (Auto) 0.8 0.0-2.0 % Neutrophils # (Auto) 8.9 H 1.6-8.6 10 ^3/uL Lymphocytes # (Auto) 1.5 0.4-5.4 10 ^3/uL Monocytes # (Auto) 0.6 0-1.3 10 ^3/uL Eosinophils # (Auto) 0.3 0-0.8 10 ^3/uL Basophils # (Auto) 0.1 0-0.2 10 ^3/uL Nucleated Red Blood Cells 0.0 % Prothrombin Time 12.7 H 9.3-11.8 sec Prothrombin Time INR 1.22 H 0.9-1.15 Activated Partial Thromboplast Time 24.8 24.5-34.5 SEC Sodium Level 139 136-145 mmol/L Potassium Level 4.1 3.5-5.1 mmol/L Chloride Level 105 98-107 mmol/L Carbon Dioxide Level 27 20-31 mmol/L Anion Gap 7 5-15 Blood Urea Nitrogen 16 9-23 mg/dL Creatinine 1.00 0.550-1.02 mg/dL Glomerular Filtration Rate Calc 65 >90 mL/min BUN/Creatinine Ratio 16.0 10.0-20.0 Serum Glucose 250 H 74-106 mg/dL Calcium Level 9.6 8.7-10.4 mg/dL Imaging: CT abdomen pelvis IMPRESSION: 1. No acute abdominal or pelvic findings. Assessment: Rectal bleeding Diarrhea improving Abdominal pain improving Plan: Discussed with Dr. Shea Stool studies pending Recommend colonoscopy, it stool studies are negative, otherwise outpatient colonoscopy recommended at this time Monitor labs We will continue to monitor patient Thank you for this consult Date of Service: Jan 25, 2025 Billing Provider: JAYMIE GODOY Common Visit Codes: CONSULT ONLY Consultation Codes: [id number] CONSULT <60MIN JAYMIE GODOY Jan 25, 2025 14:12
[2025-01-25] MEDS: BACLOFEN 10 MG TAB PO PRN (17:14)
[2025-01-25] MEDS: GOLYTELY 4L KIT PO ONE (18:53)
--- NOTE | 2025-01-25 18:58 | DVHPNRES ---
Progress Note Date Seen: Jan 25, 2025 Resident Creating Document: MOOKIE THOMAS RESIDENT Has the PT tested + for MRSA If YES, has PT been informed?: No Medical Necessity Reason Pt with a Central, PICC or Fol: No Subjective Review of Systems Gabbi Blum is 59 years old female with a past medical history of hypertension, diabetes mellitus type 2, hyperlipidemia, CVA with left-sided deficit, history of hypothyroidism, fibromyalgia, peripheral arterial disease- 50% occlusion of the left superficial femoral artery. The patient presents to the ED for evaluation of rectal bleeding. Patient reports having two episodes yesterday of rectal bleeding with watery stool. Reports mild lower abdominal pain, sharp like, not radiated to other part of the stomach, no alleviated with food. The patient denies nausea, vomiting, fever, weight lost. No other acute complaints reported. Today, the patient was examined at the bed side, she reports have no more rectal bleeding or watery stools. But still complains of mild abdominal pain 3/10. Denies fever, nausea or vomit. Vital signs and labs were reviewed. Blood occult test and GI consult was requested. We will follow up with this patient. ROS: General: Pale, Anxious, awake, alert, looks fatigued. HEENT: PEERLA, no acute nasal discharge Cardiovascular: S1-S2 audible, rate and rhythm regular, no murmur Respiratory-: Crackles on the base of both lungs, no wheeze. Gastrointestinal: Tender at deep palpation on epigastrium, bowel sound positive. non distended abdomen. Musculoskeletal: No acute joint swelling or tenderness or redness Extremity- Bilateral pitting edema, left sided weakness, left lower extremity swollen, with erythema and warmth. Neurological-patient with left-sided weakness, left hand contracture+ Psychiatry- denies depression or SI or HI Objective vital signs Vital Sign Date Time Temp Pulse Resp B/P (MAP) Pulse Ox O2 Delivery O2 Flow Rate FiO2 01/25/25 17:00 98.6 69 18 134/66 (88) 94 98.6 01/25/25 08:00 Room Air* 0 21 Total Intake and Output 01/24/25 01/24/25 01/25/25 15:00 23:00 07:00 Intake Total 600 ml Balance 600 ml medications Current Medications Medications Dose Ordered Sig/Aldair Route Start Time Stop Time Status Last Admin Dose Admin Atorvastatin Calcium 40 mg HS PO 7/21/25 22:00 01/24/25 22:36 40 MG Ferrous Sulfate 325 mg DAILY PO 01/25/25 10:00 01/25/25 09:39 325 MG Lisinopril 40 mg DAILY PO 01/25/25 10:00 01/25/25 09:45 40 MG Pantoprazole Sodium 40 mg DAILY IV 01/25/25 10:00 01/25/25 09:40 40 MG Diagnostic Test (Pha) 1 strip Q6HR 01/25/25 00:00 Insulin Human Regular Q6HR SC 01/25/25 00:00 Dextrose 50 ml UD PRN IV 01/24/25 20:00 Ondansetron HCl 4 mg Q4HP PRN IV 01/24/25 20:00 Acetaminophen/ Hydrocodone Bitart 1 tab Q6HPRN PRN PO 01/24/25 21:15 01/25/25 14:59 1 TAB Baclofen 10 mg Q8HP PRN PO 01/25/25 15:30 01/25/25 17:14 10 MG Examination General examination- Pale, Anxious, awake, alert, looks fatigued. HEENT- PEERLA, no acute nasal discharge Cardiovascular- S1-S2 audible, rate and rhythm regular, no murmur Respiratory- Crackles on the base of both lungs, no wheeze. Gastrointestinal-tender at deep palpation on epigastrium, bowel sound positive. Mild distended abdomen. Musculoskeletal-no acute joint swelling or tenderness or redness Extremity- Bilateral pitting edema, left sided weakness, left lower extremity swollen, with erythema and warmth. Neurological-patient with left-sided weakness, left hand contracture+ Psychiatry- denies depression or SI or HI laboratory and microbiology Laboratory Tests 01/25/25 08:05 Test 01/25/25 08:05 Range/Units Serum Glucose 199 H 74-106 mg/dL Microbiology Date/Time Source Procedure Growth Status 01/25/25 04:24 Nose MRSA Screen - Final Complete Problem List/Assessment/Plan Problem List/Assessment/Plan # Possible GI bleeding -Monitor CBC/H&H -Stool for occult blood test -GI consult # Hypertension -monitor blood pressure -Lisinopril 40 mg po qd -Nifedipine 60 mg po qd # Diabetes Mellitus type 2. -hold anti diabetic medication due to hypoglycemia episode # Status post CVA with left-sided weakness -Stopped: hold antiplatelet due to severe anemia, rule out acute bleeding -Plavix resumed. # history of hypothyroidism Levothyroxine 200mcg po qd # history of fibromyalgia Blacofen 10mg po prn # peripheral arterial disease PUD prophylaxis: Pantoprazole DVT prophylaxis: SCD Diet-clear liquid diet Goals of care, Plan discussed with Dr. Adkins and nursing staff. Code status: Full code PCP: Mariam Total time spent on patient evaluation, chart review, assessment and plan, discussion discussion >35 minutes Plan discussed with: Patient, Patient agrees with the plan. Plan discussed with: Patient My Orders My Orders Orders - MOOKIE THOMAS RESIDENT Procedure Category Date Status Time Stool Bacterial DARIUS 01/25/25 Uncollected Culture 08:17 Pt Request For Service PT 01/25/25 Logged 12:05 * Manager Nicu CONS 01/25/25 Transmitted Consult Baclofen Tablet PHA 01/25/25 In Process (Liorisal Tablet) 15:30 Complete Blood Count LAB 01/26/25 Verified 04:00 Basic Metabolic Panel LAB 01/26/25 Verified 04:00 Dietary Evaluation Review Comments: CCHO-45 Cardiac diet when medically feasible. Expected Outcomes/Goals: normal GI function, controlled DM, improved nutrition status, gradual wt loss MOOKIE THOMAS RESIDENT Jan 25, 2025 18:57
[2025-01-26] VITALS (8 sets, daily range): BP systolic 138–185; BP diastolic 34–85; PULSE 67–81; RESP 16–18; TEMP 98–99.1; O2SAT 94–100
[2025-01-26] MEDS: GOLYTELY 4L KIT PO ONE (03:55)
[2025-01-26] MEDS: MAGNESIUM CITRATE SOLUTION 300 ML BTL PO ONE (05:14)
--- NOTE | 2025-01-26 06:25 | DVH ---
CHEST RADIOGRAPH Indication: preop Technique: Single frontal view of the chest was obtained COMPARISON: XY CHEST PORTABLE on DOS: 01/17/25, CHEST PORTABLE on DOS: 12/13/19 FINDINGS: Lines and Tubes: None Lungs: Diffuse increased prominence of the pulmonary vasculature. Right hemidiaphragmatic elevation. Pleura: No effusion. No pneumothorax. Cardiomediastinal contours: Cardiomegaly. Bones: Unremarkable IMPRESSION: 1. Cardiomegaly and diffuse increased prominence of the pulmonary vasculature.
[2025-01-26 06:26] LABS: Hematocrit 36.0 % (36.0-46.0); Hemoglobin 12.6 g/dL (12.2-16.2); Mean Corpuscular Hemoglobin 29.4 pg (28.0-32.0); Mean Corpuscular Volume 83.9 fL (80.0-100.0); Nucleated Red Blood Cells % 0.0 %
[2025-01-26 06:27] LABS: Chloride 105 mmol/L (98-107); Potassium 3.9 mmol/L (3.5-5.1); Sodium 141 mmol/L (136-145)
[2025-01-26 06:28] LABS: Anion Gap 9 (5-15); Calcium 9.3 mg/dL (8.7-10.4); Carbon Dioxide 27 mmol/L (20-31)
[2025-01-26 06:33] LABS: BUN/Creatinine Ratio 12.9 (10.0-20.0); Blood Urea Nitrogen 9 mg/dL (9-23)
[2025-01-26 06:47] LABS: Glucose 163 mg/dL (74-106)
[2025-01-26] MEDS: MORPHINE SULFATE INJ 2 MG/ml SYRG IV ONE (08:12)
[2025-01-26] MEDS: MORPHINE SULFATE INJ 2 MG/ml SYRG IM ONE (12:02)
[2025-01-26] MEDS ORDERED: METOCLOPRAMIDE HCL 5MG/ml INJ 2ml VIAL ONE (13:22)
[2025-01-26] MEDS ORDERED: ONDANSETRON HCL 4 MG/2 ML VIAL ONE (13:22)
--- NOTE | 2025-01-26 13:55 | DVHOP2 ---
Operative Report DATE OF OPERATION: 01/26/25 PROCEDURE: Diagnostic Colonoscopy. PREOPERATIVE INDICATION: The patient is a 59 -year-old female undergoing colonoscopy for evaluation of rectal bleeding POSTOPERATIVE DIAGNOSES: 1. Trace internal hemorrhoids otherwise essentially completely normal colonoscopy examination up to the cecum and terminal ileum no fresh or old blood in the colon PROCEDURE PERFORMED BY: Francisco Javier Shea M.D. SCOPE: Olympus videocolonoscope. ASA CLASS: 3 PREOPERATIVE MEDICATIONS: Mac sedation, [place] PROCEDURE IN DETAIL: After obtaining an informed consent, the patient was placed on left lateral decubitus position. She was then sedated with the above medications. A rectal examination was performed that was normal. The colonoscope was then passed through the anus into the rectosigmoid and through the descending, transverse, and ascending colon up to the cecum with visualization of the appendiceal orifice, base of the cecum and the ileocecal valve. The colonoscope was then withdrawn. The distal 5 cm of the terminal ileum were normal There was no colitis or diverticular disease. There was no polyps or masses. There was normal liquid brown stool in the colon and no fresh or old blood in the entire lower GI tract On retroflexion and straight on view she had trace internal hemorrhoids which did not show any active bleeding The patient tolerated the procedure well without difficulty. WITHDRAWAL TIME: 7 minutes QUALITY OF THE PREP: [place] Bowel Prep score: 9. COMPLICATIONS : None SPECIMENS: None DISPOSITION: Transfer back to the floor Stable PLAN: 1. Repeat colonoscopy in 10 years 2. Resume GI soft diet advance as tolerated 3. Outpatient follow up with GI Services as needed 4. Avoid aspirin and NSAIDs 5. PPI and Carafate for gastritis FRANCISCO JAVIER SHEA MD Jan 26, 2025 13:55
--- NOTE | 2025-01-26 16:35 | DVHPNRES ---
Progress Note Date Seen: Jan 26, 2025 Resident Creating Document: MOOKIE THOMAS RESIDENT Has the PT tested + for MRSA If YES, has PT been informed?: No Medical Necessity Reason Pt with a Central, PICC or Fol: No Subjective Review of Systems Gabbi Blum is 59 years old female with a past medical history of hypertension, diabetes mellitus type 2, hyperlipidemia, CVA with left-sided deficit, history of hypothyroidism, fibromyalgia, peripheral arterial disease- 50% occlusion of the left superficial femoral artery. The patient presents to the ED for evaluation of rectal bleeding. Patient reports having two episodes yesterday of rectal bleeding with watery stool. Reports mild lower abdominal pain, sharp like, not radiated to other part of the stomach, no alleviated with food. The patient denies nausea, vomiting, fever, weight lost. No other acute complaints reported. Today, the patient was examined at the bed side, she reports have no more rectal bleeding or watery stools. But still complains of mild abdominal pain 3/10. Denies fever, nausea or vomit. Vital signs and labs were reviewed. GI is on board, they requested colonoscopy study, the patient will go for a colonoscopy today. We will follow up with the result. PT consult was placed due to Left deficit post old stroke. We will follow up with this patient progress. ROS: General: Pale, Anxious, awake, alert, looks fatigued. HEENT: PEERLA, no acute nasal discharge Cardiovascular: S1-S2 audible, rate and rhythm regular, no murmur Respiratory-: Crackles on the base of both lungs, no wheeze. Gastrointestinal: Tender at deep palpation on epigastrium, bowel sound positive. non distended abdomen. Musculoskeletal: No acute joint swelling or tenderness or redness Extremity- Bilateral pitting edema, left sided weakness, left lower extremity swollen, with erythema and warmth. Neurological-patient with left-sided weakness, left hand contracture+ Psychiatry- denies depression or SI or HI Objective vital signs Vital Sign Date Time Temp Pulse Resp B/P (MAP) Pulse Ox O2 Delivery O2 Flow Rate FiO2 01/26/25 15:00 18 165/72 (103) 01/26/25 14:40 78 95 01/26/25 13:52 Mask 10.0 01/26/25 13:52 98.8 98.8 01/26/25 08:30 21 Total Intake and Output 01/25/25 01/25/25 01/26/25 15:00 23:00 07:00 Intake Total 590 ml 2000 ml Output Total 1 ml Balance 589 ml 2000 ml medications Current Medications Medications Dose Ordered Sig/Aldair Route Start Time Stop Time Status Last Admin Dose Admin Atorvastatin Calcium 40 mg HS PO 01/24/25 22:00 01/25/25 22:42 40 MG Ferrous Sulfate 325 mg DAILY PO 01/25/25 10:00 01/25/25 09:39 325 MG Lisinopril 40 mg DAILY PO 01/25/25 10:00 01/25/25 09:45 40 MG Pantoprazole Sodium 40 mg DAILY IV 01/25/25 10:00 01/26/25 08:12 40 MG Diagnostic Test (Pha) 1 strip Q6HR 01/25/25 00:00 Insulin Human Regular Q6HR SC 01/25/25 00:00 Dextrose 50 ml UD PRN IV 01/24/25 20:00 Ondansetron HCl 4 mg Q4HP PRN IV 01/24/25 20:00 Acetaminophen/ Hydrocodone Bitart 1 tab Q6HPRN PRN PO 01/24/25 21:15 01/26/25 16:05 1 TAB Baclofen 10 mg Q8HP PRN PO 01/25/25 15:30 01/25/25 17:14 10 MG Examination General examination- Pale, Anxious, awake, alert, looks fatigued. HEENT- PEERLA, no acute nasal discharge Cardiovascular- S1-S2 audible, rate and rhythm regular, no murmur Respiratory- clear lung suresh, decrease expansion due to of positioning. Gastrointestinal-tender at deep palpation on epigastrium, bowel sound positive. Mild distended abdomen. Musculoskeletal-no acute joint swelling or tenderness or redness Extremity- Bilateral pitting edema, left sided weakness. Neurological-patient with left-sided weakness, left hand contracture+ Psychiatry- denies depression or SI or HI laboratory and microbiology Laboratory Tests 01/26/25 05:45 Test 01/26/25 05:45 Range/Units Serum Glucose 163 H 74-106 mg/dL Microbiology Date/Time Source Procedure Growth Status 01/25/25 04:24 Nose MRSA Screen - Final Complete Problem List/Assessment/Plan Problem List/Assessment/Plan # Possible GI bleeding -Monitor CBC/H&H -Stool for occult blood test -GI consult -Colonoscopy # Hypertension -monitor blood pressure -Lisinopril 40 mg po qd -Nifedipine 60 mg po qd # Diabetes Mellitus type 2. -hold anti diabetic medication due to hypoglycemia episode # Status post CVA with left-sided weakness -Stopped: hold antiplatelet due to severe anemia, rule out acute bleeding -Plavix resumed. # history of hypothyroidism Levothyroxine 200mcg po qd # history of fibromyalgia Blacofen 10mg po prn # peripheral arterial disease PUD prophylaxis: Pantoprazole DVT prophylaxis: SCD Diet-clear liquid diet Goals of care, Plan discussed with Dr. Adkins and nursing staff. Code status: Full code PCP: Mariam Total time spent on patient evaluation, chart review, assessment and plan, discussion discussion >35 minutes Plan discussed with: Patient and daughter Ale, Patient and family member agrees with the plan. All questions and concerns were addressed. Plan discussed with: Patient, Daughter My Orders My Orders Orders - MOOKIE THOMAS RESIDENT Procedure Category Date Status Time Mrsa Screen DARIUS 01/26/25 Uncollected 01:27 Complete Blood Count LAB 01/27/25 Verified 04:00 Basic Metabolic Panel LAB 01/27/25 Verified 04:00 Dietary Evaluation Review Comments: CCHO-45 Cardiac diet when medically feasible. Expected Outcomes/Goals: normal GI function, controlled DM, improved nutrition status, gradual wt loss MOOKIE THOMAS RESIDENT Jan 26, 2025 16:35
[2025-01-26] MEDS: MELATONIN 5 MG TAB PO ONE (21:46)
[2025-01-27 05:00] VITALS: BP 143/78; PULSE 77; RESP 18; TEMP 98.2; O2SAT 95
[2025-01-27 05:11] LABS: Urine Budding Yeast LOADED /hpf (None Seen); Urine Protein, UAD 1+ (Negative)
[2025-01-27 06:38] LABS: Hematocrit 34.4 % (36.0-46.0); Hemoglobin 11.8 g/dL (12.2-16.2); Mean Corpuscular Hemoglobin 29.3 pg (28.0-32.0); Mean Corpuscular Volume 85.3 fL (80.0-100.0); Nucleated Red Blood Cells % 0.1 %
[2025-01-27 06:49] LABS: Anion Gap 7 (5-15); Carbon Dioxide 27 mmol/L (20-31); Chloride 104 mmol/L (98-107); Potassium 3.9 mmol/L (3.5-5.1); Sodium 138 mmol/L (136-145)
[2025-01-27 06:51] LABS: Calcium 8.6 mg/dL (8.7-10.4)
[2025-01-27 06:55] LABS: Glucose 347 mg/dL (74-106)
[2025-01-27 06:56] LABS: BUN/Creatinine Ratio 16.3 (10.0-20.0); Blood Urea Nitrogen 16 mg/dL (9-23)
[2025-01-27 08:56] VITALS: BP 159/69; PULSE 69; RESP 15; TEMP 97.8; O2SAT 91
--- NOTE | 2025-01-27 09:58 | DVHPN2 ---
Progress Note - Dictate Date Seen: Jan 27, 2025 Has the PT tested + for MRSA If YES, has PT been informed?: No Medical Necessity Reason Pt with a Central, PICC or Fol: No Subjective No new complaints, patient resting comfortably There was no further rectal bleeding Colonoscopy test is negative EGD during last hospitalization had shown gastritis with erosions vital signs Vital Sign Date Time Temp Pulse Resp B/P (MAP) Pulse Ox O2 Delivery O2 Flow Rate FiO2 01/27/25 09:09 159/69 01/27/25 08:56 97.8 69 15 91 97.8 01/27/25 08:00 Room Air* 0 21 Total Intake and Output 01/26/25 01/26/25 01/27/25 15:00 23:00 07:00 Intake Total 100 ml 650 ml 280 ml Balance 100 ml 650 ml 280 ml medications Current Medications Medications Dose Ordered Sig/Aldair Route Start Time Stop Time Status Last Admin Dose Admin Atorvastatin Calcium 40 mg HS PO 01/24/25 22:00 01/26/25 21:45 40 MG Ferrous Sulfate 325 mg DAILY PO 01/25/25 10:00 01/27/25 09:08 325 MG Lisinopril 40 mg DAILY PO 01/25/25 10:00 01/27/25 09:09 40 MG Pantoprazole Sodium 40 mg DAILY IV 01/25/25 10:00 01/27/25 09:10 40 MG Diagnostic Test (Pha) 1 strip Q6HR 01/25/25 00:00 Insulin Human Regular Q6HR SC 01/25/25 00:00 Dextrose 50 ml UD PRN IV 01/24/25 20:00 Ondansetron HCl 4 mg Q4HP PRN IV 01/24/25 20:00 Acetaminophen/ Hydrocodone Bitart 1 tab Q6HPRN PRN PO 01/24/25 21:15 01/27/25 04:59 1 TAB Baclofen 10 mg Q8HP PRN PO 01/25/25 15:30 01/26/25 18:55 10 MG objective General: NAD, AAOX3 Chest: lung suresh clear to auscultation Heart: RRR, no murmur Abdomen: non-distended, no tenderness to palpation, +BS Ext no c/c/e laboratory and microbiology Laboratory Tests 01/27/25 06:00 Test 01/27/25 06:00 Range/Units Serum Glucose 347 H 74-106 mg/dL Problems(with codes): (1) Lower GI bleed (2) E. coli septicemia (3) Acute abdominal pain Prognosis PLAN Advance GAGE PPI and Carafate Avoid nsaids; aspirin Cleared for d/c from GI point of view Dietary Evaluation Review Comments: [facility] Card[facility] diet when medically feasible. Expected Outcomes/Goals: normal GI function, controlled DM, improved nutrition status, gradual wt loss Plan discussed with: Other (None) FRANCISCO JAVIER SCHMID MD Jan 27, 2025 09:58
[2025-01-27] MEDS ORDERED: LIDOCAINE 1% (LOCAL ANESTH.) PF 5ml SDV IJ ONE (12:58)
[2025-01-27] MEDS ORDERED: PROPOFOL 10 MG/ML 20 ML IV ONE (12:58)
[2025-01-27 13:00] VITALS: BP 173/77; PULSE 68; RESP 20; TEMP 97.5; O2SAT 95
[2025-01-27 17:00] VITALS: BP 180/57; PULSE 71; RESP 18; TEMP 97.6; O2SAT 95
--- NOTE | 2025-01-27 17:00 | DVHDS2 ---
Discharge Summary Date of Admission Jan 24, 2025 at 19:40 Date of Discharge: Jan 27, 2025 Labs/Diagnostic Data: Laboratory Results Test 01/27/25 06:00 01/27/25 01:30 01/25/25 10:30 01/24/25 17:45 White Blood Count 8.1 10^3/uL (4.4-10.8) Red Blood Count 4.03 10^6/uL (4.0-5.20) Hemoglobin 11.8 g/dL (12.2-16.2) Hematocrit 34.4 % (36.0-46.0) Mean Corpuscular Volume 85.3 fL (80.0-100.0) Mean Corpuscular Hemoglobin 29.3 pg (28.0-32.0) Mean Corpuscular Hemoglobin Concent 34.4 g/dL (32.0-36.0) Red Cell Distribution Width 15.5 % (11.8-14.3) Platelet Count 166 10^3/uL (140-450) Mean Platelet Volume 8.8 fL (6.9-10.8) Neutrophils (%) (Auto) 68.3 % (37.0-80.0) Lymphocytes (%) (Auto) 19.1 % (10.0-50.0) Monocytes (%) (Auto) 9.2 % (0.0-12.0) Eosinophils (%) (Auto) 3.0 % (0.0-7.0) Basophils (%) (Auto) 0.4 % (0.0-2.0) Neutrophils # (Auto) 5.5 10 ^3/uL (1.6-8.6) Lymphocytes # (Auto) 1.5 10 ^3/uL (0.4-5.4) Monocytes # (Auto) 0.7 10 ^3/uL (0-1.3) Eosinophils # (Auto) 0.2 10 ^3/uL (0-0.8) Basophils # (Auto) 0 10 ^3/uL (0-0.2) Nucleated Red Blood Cells 0.1 % Sodium Level 138 mmol/L (136-145) Potassium Level 3.9 mmol/L (3.5-5.1) Chloride Level 104 mmol/L (98-107) Carbon Dioxide Level 27 mmol/L (20-31) Anion Gap 7 (5-15) Blood Urea Nitrogen 16 mg/dL (9-23) Creatinine 0.98 mg/dL (0.550-1.02) Glomerular Filtration Rate Calc 66 mL/min (>90) BUN/Creatinine Ratio 16.3 (10.0-20.0) Serum Glucose 347 mg/dL (74-106) Calcium Level 8.6 mg/dL (8.7-10.4) Urine Color Light-yellow (Yellow) Urine Clarity Clear (Clear) Urine pH 6.5 (5.0-9.0) Urine Specific Moffit 1.017 (1.001-1.035) Urine Protein 1+ (Negative) Urine Ketones Negative (Negative) Urine Blood Trace /uL (Negative) Urine Nitrite Negative (Negative) Urine Bilirubin Negative (Negative) Urine Urobilinogen Normal mg/dL (Negative) Urine Leukocyte Esterase 1+ /uL (Negative) Urine RBC 11 /hpf (0 - 4) Urine Microscopic WBC 26 /HPF (0-5) Urine Squamous Epithelial Cells Few /hpf (<5) Urine Bacteria None seen /hpf (None Seen) Urine Hyaline Casts Mod /lpf (0 - 2) Urine Yeast (Budding) Loaded /hpf (None Seen) Urine Glucose 4+ mg/dL (Normal) Stool Occult Blood Negative (Negative) Stool Occult Blood Sample #3 (Negative) Prothrombin Time 12.7 sec (9.3-11.8) Prothrombin Time INR 1.22 (0.9-1.15) Activated Partial Thromboplast Time 24.8 SEC (24.5-34.5) Other Laboratory Tests 01/27/25 06:00 Brief Hx & Hospital Course: Gabbi Blum is 59 years old female with a past medical history of hypertension, diabetes mellitus type 2, hyperlipidemia, CVA with left-sided deficit, history of hypothyroidism, fibromyalgia, peripheral arterial disease- 50% occlusion of the left superficial femoral artery. The patient presents to the ED for evaluation of rectal bleeding. Patient reports having two episodes yesterday of rectal bleeding with watery stool. Reports mild lower abdominal pain, sharp like, not radiated to other part of the stomach, no alleviated with food. The patient denies nausea, vomiting, fever, weight lost. No other acute complaints reported. GI is on board, they requested colonoscopy study, the patient will go for a colonoscopy. Colonoscopy only positive for internal hemorrhoids. No obvious source of lower GI bleed. Hemoglobin stable. GI we will follow up outpatient. Pathology samples to be reviewed outpatient with PCP and GI follow up. Patient is stable for discharge. PT has reviewed patient and suggests SNF for PT rehab. Patient will be discharged for PT rehab at SNF. #Lower GI bleed, active bleed ruled out # Internal hemmorrhoids, no active bleed #physical deconditioning # Hypertension # Diabetes Mellitus type 2. # Status post CVA with left-sided weakness # hypothyroidism # history of fibromyalgia # peripheral arterial disease Condition at Discharge: Fair Final Diagnosis/Problems List #Lower GI bleed, active bleed ruled out # Internal hemmorrhoids, no active bleed #physical deconditioning # Hypertension # Diabetes Mellitus type 2. # Status post CVA with left-sided weakness # hypothyroidism # history of fibromyalgia # peripheral arterial disease Discharge Disposition: Intermediate Facility Discharge Instruct/Medications Diet: Cardiac 2g Na,low cholest Diet comment: Include high fiber diet to avoid constipation and bleeding from internal hemorroinds Activity: No Restrictions, As Tolerated Follow Up/Referral: F/U with PCP in one week F/U with GI in 2 weeks Medications: Nitrofurantoin 100mg po bid x 5 days Scheduled Amoxicillin & Pot Clavulanate (Augmentin Tablet), 875 MG PO BID Aspirin (Aspirin), 81 MG PO DAILY, (Reported) Aspirin (Aspirin 81 Low Dose), 81 MG PO DAILY, (Reported) Atorvastatin Calcium (Atorvastatin Calcium), 1 TAB PO DAILY, (Reported) Clopidogrel Bisulfate (Clopidogrel), 1 TAB PO DAILY, (Reported) Ferrous Sulfate (Ferrous Sulfate), 325 MG PO DAILY Glipizide (Glipizide), 1 TAB PO DAILY, (Reported) Hydrocodone-Acetaminophen (Hydrocodone Bitartrate/AC 5-325 mg), 1 TAB PO QID Lisinopril (Lisinopril), 1 TAB PO DAILY, (Reported) Nifedipine (Nifedipine Er), 1 TAB PO DAILY Pantoprazole Sodium Sesquihydr (Protonix), 40 MG PO BID Sitagliptin Phosphate (Januvia), 1 TAB PO DAILY, (Reported) Sucralfate (Carafate Susp), 1 GM PO BID@0600,2200 Trazodone Hcl (Trazodone Hcl), 50 MG PO HS, (Reported) Discontinued Medications Atorvastatin Calcium (Atorvastatin Calcium), 1 TAB PO DAILY, (Reported) Clindamycin HCl (Clindamycin Hydrochloride), 1 CAP PO TID, (Reported) Clindamycin Hcl (Clindamycin Hcl), 1 CAP PO TID Clindamycin Hcl (Clindamycin Hcl), 1 CAP PO TID Glipizide (Glipizide), 1 TAB PO BID, (Reported) Discharge Statement: "Patient was advised to return to the ER or call 911 if any headaches, dizziness, shortness of breath, chest pain, abdominal pain, bleeding, fevers, or worsening of medical condition. Patient was counseled about treatment plan, medications, possible side effects, patientverbalized understanding. All questions were answered to the best of my ability. This discharge took greater then 30 minutes in planning, reviewing documentation, counseling the patient, and discussing with other team members." Date of Service: Jan 27, 2025 Billing Provider: VEIT RINCON MD Common Visit Codes: 10396-BKL/OBS DISCH DAY >30min VIET RINCON MD Jan 27, 2025 17:00
== END 2025-01-27 17:41 | DRG 394 ==
LOC: EDBD 17:21 → ER 17:21 → OVERFLOW 19:40 → EAST 23:57
PROVIDERS: ADMIT Student in an Organized Health Care Education/Training Program; ATTEND Emergency Medicine
PROC: 0DJD8ZZ Inspection of Lower Intestinal Tract, Via Natural or Artificial Opening Endoscopic (ICD-10-PCS; principal; 2025-01-26 13:23)
DX: K64.8 Other hemorrhoids (principal); I69.354 Hemiplegia and hemiparesis following cerebral infarction affecting left non-dominant side; I10 Essential (primary) hypertension; E03.9 Hypothyroidism, unspecified; E11.51 Type 2 diabetes mellitus with diabetic peripheral angiopathy without gangrene; M79.7 Fibromyalgia; E78.5 Hyperlipidemia, unspecified; Z74.01 Bed confinement status; Z90.710 Acquired absence of both cervix and uterus; Z90.49 Acquired absence of other specified parts of digestive tract; Z83.3 Family history of diabetes mellitus; Z80.8 Family history of malignant neoplasm of other organs or systems
CPT/HCPCS: 36415; 45378; 71045; 74176; 80048; 81001; 82270; 85025; 85610; 85730; 86850; 86860; 86870; 86880; 86900; 86901; 86905; 86906; 86971; 87081; 97110; 97163; G0378; J2405; J2470; J2704